=== PATIENT | female | born 1960 | race Caucasian/White ===

== ENCOUNTER → 2016-04-05 | Outpatient (CLI) | payer OTHER ==
--- NOTE | 2016-04-05 14:18 | MM ---
Reason for exam: screening (asymptomatic). Last mammogram was performed 1 year ago. History: Patient is postmenopausal and has history of other cancer at age 45. Physical Findings: A clinical breast exam by your physician is recommended on an annual basis and results should be correlated with mammographic findings. MG Screening Mammo w CAD Bilateral CC and MLO view(s) were taken. Prior study comparison: April 04, 2015, bilateral MG screening mammo w CAD. March 16, 2014, bilateral MG screening mammo w CAD. The breast tissue is heterogeneously dense. This may lower the sensitivity of mammography. Finding: There are typically benign round, grouped/clustered calcifications in the left breast. Asymmetric breast tissue in the left breast, stable. There is no discrete abnormality. ASSESSMENT: Benign, BI-RAD 2 RECOMMENDATION: Routine screening mammogram of both breasts in 1 year.
== END | disposition home or self-care (01) ==
LOC: RADMAMWWP 10:08
PROVIDERS: ATTEND Family Medicine
DX: Z12.31 Encounter for screening mammogram for malignant neoplasm of breast (principal)

== ENCOUNTER → 2016-05-15 | Outpatient (CLI) | payer OTHER ==
[~2016-05-15] MED LIST: HYDROCORTISONE SUCCINATE 100 MG/2 ML VIAL IV ONE; IMMUNE GLOBULIN (HUMAN-IGG) 10 GM in EMPTY BAG 1 BAG IV ONE; MEPERIDINE 50 MG/ML SYRINGE IVP PRN; diphenhydrAMINE 25 MG CAP PO ONE
[2016-05-15] MEDS: SODIUM CHLORIDE 0.9% 500 ML in EMPTY BAG 1 BAG IV PRN (08:20)
[2016-05-15] MEDS: diphenhydrAMINE 50 MG/ML 1 ML VIAL IVP NR (08:23)
[2016-05-15] MEDS: IMMUNE GLOBULIN (HUMAN-IGG) 20 GM in EMPTY BAG 1 BAG IV ONE (08:23)
[2016-05-15] MEDS: ACETAMINOPHEN TAB 325 MG TAB PO ONE (08:23)
[2016-05-15 08:29] VITALS: RESP 16; TEMP 98.5
[2016-05-15 10:12] VITALS: BP 108/67; PULSE 84
== END | disposition home or self-care (01) ==
LOC: PROCWHC3 07:59
PROVIDERS: ATTEND Internal Medicine
DX: Z94.84 Stem cells transplant status (principal)
CPT/HCPCS: 96365; 96366; 96375; J1200; J1569

== ENCOUNTER → 2016-08-06 | Outpatient (CLI) | payer OTHER ==
--- NOTE | 2016-08-06 08:49 | CT ---
EXAMINATION TYPE: CT sinus wo con DATE OF EXAM: 08/06/2016 COMPARISON: NONE HISTORY: Recurrent maxillary sinusitis CT DLP: 532.50 mGycm Automated exposure control for dose reduction was used. FINDINGS: Visualized intracranial structures appear normal. The orbits appear normal. There is been a previous Coldwell Fidencio procedure on the left. There is minimal mucoperiosteal thickeni ng involving the left maxillary sinus. The remainder the paranasal sinuses are clear. The right infun dibulum is patent. IMPRESSION: 1. POSTSURGICAL CHANGE. 2. MINIMAL, CHRONIC MUCOPERIOSTEAL THICKENING, LEFT MAXILLARY SINUS.
== END | disposition home or self-care (01) ==
LOC: RADCTMAIN 07:18
PROVIDERS: ATTEND Family Medicine
DX: J34.89 Other specified disorders of nose and nasal sinuses (principal)
CPT/HCPCS: 70486

== ENCOUNTER → 2016-10-10 | Outpatient (CLI) | payer OTHER ==
--- NOTE | 2016-10-10 10:08 | CT ---
EXAMINATION TYPE: CT chest wo con DATE OF EXAM: 10/10/2016 COMPARISON: CT chest June 20, 2015 HISTORY: Cough, history of leukemia CT DLP: 108.4 mGycm. Automated Exposure Control for Dose Reduction was Utilized. TECHNIQUE: CT scan of the thorax is performed without IV contrast. FINDINGS: LUNGS: There is mild to borderline moderate emphysematous change in both lungs with and minimal apica l scarring bilaterally identified. There is interval improvement in left basilar consolidation with s ome residual scarring or atelectatic change present. There is minimal linear scarring or atelectasis in the right lung base just above diaphragm. No new consolidation or groundglass opacity is seen. No pleural effusion or pneumothorax is present. There remains mild central peribronchial wall thickening bilaterally felt stable. MEDIASTINUM: Lack of IV contrast is noted to limit evaluation for mediastinal and especially hilar ad enopathy. There are no definitive greater than 1 cm hilar or mediastinal lymph nodes. No cardiomega ly or pericardial effusion is seen. Prominent right-sided pericardial fat pad is noted. Ascending aor ta measures 3.6 cm in diameter on axial image 26. Coronary artery calcification is seen which is note d marker for coronary artery disease. OTHER: Exaggerated thoracic kyphosis is present. There is persistent moderate to severe compression a t T9 level. There is new since prior study but suspected chronic mild compression at T8 level. There are additional mild compression type fracture deformities at T12-L2 levels along superior endplates, L2 level is new from prior. No acute fracture is evident. IMPRESSION: 1. Mild to borderline moderate emphysematous change with stable mild central parabronchial wall thick ening bilaterally. Interval resolution of left lower lobe consolidation. Left greater than right biba silar scarring linear scarring and/or atelectasis remains present. No new focal infiltrate is seen. 2. Demineralization with several chronic compression type fractures in the thoracolumbar spine identi fied, some are new from prior study but still suspected chronic in age.
== END | disposition home or self-care (01) ==
LOC: RADCTMAIN 09:16
PROVIDERS: ATTEND Internal Medicine
DX: J43.9 Emphysema, unspecified (principal); J98.09 Other diseases of bronchus, not elsewhere classified; S22.080A Wedge compression fracture of T11-T12 vertebra, initial encounter for closed fracture; T86.5 Complications of stem cell transplant; S32.010D Wedge compression fracture of first lumbar vertebra, subsequent encounter for fracture with routine healing
CPT/HCPCS: 71250

== ENCOUNTER → 2016-11-14 | Outpatient (CLI) | payer OTHER ==
[~2016-11-14] MED LIST changes: +ACETAMINOPHEN TAB 325 MG TAB PO ONE; -HYDROCORTISONE SUCCINATE 100 MG/2 ML VIAL IV ONE; -IMMUNE GLOBULIN (HUMAN-IGG) 10 GM in EMPTY BAG 1 BAG IV ONE; +IMMUNE GLOBULIN (HUMAN-IGG) 20 GM in EMPTY BAG 1 BAG IV ONE; -MEPERIDINE 50 MG/ML SYRINGE IVP PRN; +SODIUM CHLORIDE 0.9% 500 ML in EMPTY BAG 1 BAG IV PRN; -diphenhydrAMINE 25 MG CAP PO ONE; +diphenhydrAMINE 50 MG/ML 1 ML VIAL IVP ONE
[2016-11-14 09:32] VITALS: TEMP 98.5
[2016-11-14 10:03] VITALS: RESP 16
[2016-11-14 10:38] VITALS: BP 129/77; PULSE 71
== END | disposition home or self-care (01) ==
LOC: PROCWHC3 09:14
PROVIDERS: ATTEND Internal Medicine Hematology & Oncology
DX: D80.1 Nonfamilial hypogammaglobulinemia (principal); Z94.84 Stem cells transplant status
CPT/HCPCS: 82784; 96365; 96366; 96375; 36415; J1200; J1569

== ENCOUNTER → 2016-11-21 | Outpatient (CLI) | payer OTHER ==
--- NOTE | 2016-11-21 10:50 | CT ---
EXAMINATION TYPE: CT abdomen pelvis wo/w con DATE OF EXAM: 11/21/2016 COMPARISON: 01/06/2014 HISTORY: 56-year-old female abdominal tenderness TECHNIQUE: Contiguous axial scanning of the abdomen and pelvis following administration of 100 ml Omn ipaque 300 IV contrast. Delayed images through the kidneys and coronal/sagittal reconstructions perf ormed. CT DLP: 573.10 mGycm Automated exposure control for dose reduction was used. FINDINGS: The heart is normal size without pericardial effusion. Strandy atelectasis or scarring at the posteri or left base. Tiny hiatal hernia. No focal liver lesion or biliary ductal dilatation. Portal venous system is patent. Gallbladder, adrenal glands, kidneys, and pancreas appear within normal limits. The spleen is small. No dilated small bowel, free fluid, or free air. Small fatty umbilical hernia. No mesenteric or retroperitoneal lymphadenopathy. Mild apical scarring calcifications within the infrarenal abdominal aorta and iliac arteries. Oral contrast has progressed to the distal sigmoid. There is mild stool burden. Bladder is urine distended. Pelvic phleboliths. Uterus is tilted to the right but has a bulky appearance with possible large central fibroid possibly measuring at least 3 cm which appears to have been present on 01/06/2014 but may be slightly larger n ow. This can be assessed with pelvic ultrasound. Both ovaries are visualized. No abnormal fluid colle ction in the pelvis or pelvic lymphadenopathy. Bones: Degenerative changes lumbar spine with a mild superior endplate compression deformities of and T11, T12, and L1 stable from 06/20/2015. Mild retropulsion into the spinal canal appears similar. IMPRESSION: 1. SMALL FATTY UMBILICAL HERNIA. TINY HIATAL HERNIA. 2. BULKY UTERUS. A LARGE SUBMUCOSAL FIBROID MAY BE PRESENT AND COULD BE FURTHER EVALUATED WITH PELVIC ULTRASOUND. 3. CHRONIC MILD SUPERIOR ENDPLATE COMPRESSION DEFORMITIES OF T11, T12, AND L1.
== END | disposition home or self-care (01) ==
LOC: RADCTMAIN 08:13
PROVIDERS: ATTEND Family Medicine
DX: K42.9 Umbilical hernia without obstruction or gangrene (principal); K44.9 Diaphragmatic hernia without obstruction or gangrene; N85.2 Hypertrophy of uterus
CPT/HCPCS: 74178; Q9967

== ENCOUNTER → 2016-12-13 | Outpatient (CLI) | payer OTHER ==
--- NOTE | 2016-12-14 22:30 | US ---
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 History of uterine fibroids , leukemia, menopause age 45; pelvic pain; TECHNIQUE: Transvaginal (TV) and Transabdominal (TA) . Color Doppler and spectral waveform analysis of the ovarian arteries and veins. Date of LMP: age 45 FINDINGS: Uterus: Anteverted measuring 7.7 x 5.9 x 4.7 cm with extensive heterogeneity making it difficult to delineate the junctional anatomy. Multiple calcifications are present with multiple fibroids, largest measuring 4.4 cm as indicated by the refrigeration supervisor. It is difficult to clearly determine where exactly this fibroid is located. It appears to fill the central uterus on image 38. [employer] notes: Endometrial Stripe: not defined with large uterine fibroid. [employer] also indicates a scar which is not clearly identified on the provided images. Right Ovary: 2.3 x 2.0 x 1.2 cm Left Ovary: 1.7 x 1.2 x 1.3 cm There is satisfactory arterial and venous flow in both ovaries. No evident adnexal abnormality or cul-de-sac free fluid. IMPRESSION: 1. Markedly heterogeneous uterus with multiple fibroids. Largest measures 4.4 cm and appears to fill the central uterus, obscuring the endometrium. If fibroid mapping is desired, female pelvic MRI can b e performed. 2. No sonographic evidence for ovarian torsion.
== END ==
LOC: RADUSWWP 15:26
PROVIDERS: ATTEND Family Medicine
DX: D25.1 Intramural leiomyoma of uterus (principal)
CPT/HCPCS: 76830; 76856

== ENCOUNTER → 2017-03-20 | Outpatient (CLI) | payer OTHER ==
[2017-03-20 09:02] VITALS: RESP 16; TEMP 98.2
[2017-03-20 10:12] VITALS: BP 116/72; PULSE 82
== END | disposition home or self-care (01) ==
LOC: PROCWHC3 08:45
PROVIDERS: ATTEND Internal Medicine Hematology & Oncology
DX: Z94.84 Stem cells transplant status (principal)
CPT/HCPCS: 96365; 96366; 96375; J1200; J1569

== ENCOUNTER → 2017-06-02 | Outpatient (CLI) | payer OTHER ==
--- NOTE | 2017-06-03 09:46 | MM ---
Reason for exam: screening (asymptomatic). Last mammogram was performed 1 year and 2 months ago. History: Patient is postmenopausal and has history of other cancer at age 45. Physical Findings: A clinical breast exam by your physician is recommended on an annual basis and results should be correlated with mammographic findings. MG Screening Mammo w CAD Bilateral CC and MLO view(s) were taken. Prior study comparison: April 05, 2016, bilateral MG screening mammo w CAD. April 04, 2015, bilateral MG screening mammo w CAD. The breast tissue is heterogeneously dense. This may lower the sensitivity of mammography. Finding: There are typically benign calcifications in both breasts. No suspicious abnormality. No significant changes in finding since April 05, 2016 and April 04, 2015. ASSESSMENT: Benign, BI-RAD 2 RECOMMENDATION: Routine screening mammogram of both breasts in 1 year.
== END | disposition home or self-care (01) ==
LOC: RADMAMWWP 09:59
PROVIDERS: ATTEND Family Medicine
DX: Z12.31 Encounter for screening mammogram for malignant neoplasm of breast (principal)
CPT/HCPCS: 77067

== ENCOUNTER → 2017-06-26 | Outpatient (CLI) | payer OTHER ==
[~2017-06-26] MED LIST changes: +ACETAMINOPHEN TAB 325 MG TAB PO NR; -ACETAMINOPHEN TAB 325 MG TAB PO ONE; +IMMUNE GLOBULIN (HUMAN-IGG) 20 GM in EMPTY BAG 1 BAG IV NR; -IMMUNE GLOBULIN (HUMAN-IGG) 20 GM in EMPTY BAG 1 BAG IV ONE; +diphenhydrAMINE 25 MG CAP PO NR; +diphenhydrAMINE 50 MG/ML 1 ML VIAL IVP NR; -diphenhydrAMINE 50 MG/ML 1 ML VIAL IVP ONE
[2017-06-26 09:11] VITALS: TEMP 98.5
[2017-06-26 09:57] VITALS: PULSE 80; RESP 16
[2017-06-26 10:29] VITALS: BP 128/82
== END | disposition home or self-care (01) ==
LOC: PROCWHC3 08:49
PROVIDERS: ATTEND Internal Medicine
DX: Z94.84 Stem cells transplant status (principal)
CPT/HCPCS: 96365; 96366; 96375; J1200; J1569

== ENCOUNTER → 2017-08-28 | Outpatient (CLI) | payer OTHER ==
[~2017-08-28] MED LIST changes: -ACETAMINOPHEN TAB 325 MG TAB PO NR; +ACETAMINOPHEN TAB 325 MG TAB PO ONE; +IMMUNE GLOBULIN (HUMAN-IGG) 10 GM in EMPTY BAG 1 BAG IV ONE; -IMMUNE GLOBULIN (HUMAN-IGG) 20 GM in EMPTY BAG 1 BAG IV NR; +IMMUNE GLOBULIN (HUMAN-IGG) 5 GM in EMPTY BAG 1 BAG IV ONE; -diphenhydrAMINE 25 MG CAP PO NR; +diphenhydrAMINE 25 MG CAP PO ONE; -diphenhydrAMINE 50 MG/ML 1 ML VIAL IVP NR; +diphenhydrAMINE 50 MG/ML 1 ML VIAL IVP ONE
[2017-08-28 08:49] VITALS: RESP 16; TEMP 98.6
[2017-08-28 10:10] VITALS: BP 122/71; PULSE 77
== END ==
LOC: PROCWHC3 08:29
PROVIDERS: ATTEND Internal Medicine
DX: Z09 Encounter for follow-up examination after completed treatment for conditions other than malignant neoplasm (principal); Z94.84 Stem cells transplant status
CPT/HCPCS: 96365; 96366; J1200; J1569 ×2

== ENCOUNTER → 2017-09-23 | Outpatient (CLI) | payer OTHER ==
--- NOTE | 2017-09-23 14:52 | BD ---
EXAMINATION TYPE: Axial Bone Density DATE OF EXAM: 09/23/2017 COMPARISON: 07/25/2015 CLINICAL HISTORY: Postmenopausal female. Osteoporosis screening. Height: 61 IN Weight: 110 LBS FRAX RISK QUESTIONS: Family History (Parent hip fracture): YES FATHER RISK FACTORS HISTORY OF: Family History of Osteoporosis: YES MOTHER Active: YES Postmenopausal woman: AGE 45 Lost more than 2 inches in height since high school: YES 3 " MEDICATIONS: Osteoporosis Medications: YES Which medication: FOSAMAX CALCITONIN How Lon YEARS Additional Medications: CALCIUM, VIT D, FOSAMAX, CALCITONIN,SYMBICORT, FOLIC ACID, FISH OIL, PRAVACHO L, COZAAR, MAGNESIUM, Additional History: PT HAD LEUKEMIA WITH CHEMO EXAM MEASUREMENTS: Bone mineral densitometry was performed using the [employer] System. Bone mineral density as measured about the Lumbar spine is: ----- L1-L4(G/cm2): 0.910 T Score Values are as follows: ----- L2: -2.3 ----- L3: -2.5 ----- L4: -2.6 ----- L1-L4: -2.2 Bone mineral density has: Increased 6.2% since study of: 07/25/2015 Bone mineral density about the R hip (g/cm2): 0.746 Bone mineral density about the L hip (g/cm2): 0.720 T Score values are as follows: -----R Neck: -2.1 -----L Neck: -2.3 -----R Total: -2.7 -----L Total: -2.6 Bone mineral density has: Increased 1.5% since study of: 07.25.2015 IMPRESSION: Osteoporosis (T Score less than -2.5). There is increased fracture risk and therapy is usually indicated based on age. Re-Screen 1-2 years. NOTE: T-SCORE=SD OF THE YOUNG ADULT MEAN.
== END | disposition home or self-care (01) ==
LOC: RADBDWWP 09:36
PROVIDERS: ATTEND Obstetrics & Gynecology
DX: M81.0 Age-related osteoporosis without current pathological fracture (principal); Z78.0 Asymptomatic menopausal state
CPT/HCPCS: 77080

== ENCOUNTER 2017-10-06 07:22 | Emergency (ER) | payer OTHER ==
[2017-10-06 07:36] VITALS: BP 130/70; PULSE 86; RESP 20; TEMP 98.5
--- NOTE | 2017-10-06 07:54 | ED ---
General Adult HPI - General Chief complaint: Skin/Abscess/Foreign Body Stated complaint: Bug bite rt hand Time Seen by Provider: 10/06/17 07:41 Source: patient, RN notes reviewed, old records reviewed Mode of arrival: ambulatory Limitations: no limitations - History of Present Illness Initial comments: 57-year-old female presenting with bug bite to the right hand. This occurred approximately 2 days ago. She has had erythema and severe itching in the location of the bite as well as the surrounding tissue. Patient denies fever or chills. She states that she did take one Benadryl with minimal relief. She has been putting topical cream on this with no change. 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 She is currently not on any immunosuppression, no daily steroids. Denies any other symptoms. No complaints of dyspnea. No chest pain, no abdominal pain, no nausea vomiting. - Related Data Home Medications Medication Instructions Recorded Confirmed Albuterol Sulfate [Ventolin HFA] 2 puff INHALATION DIRECTED PRN 07/12/13 Budesonide/Formoterol Fumarate 2 puff INHALATION BID 07/12/13 08/28/17 [Symbicort 160-4.5 Mcg Inhaler] Calcium Carbonate/Vitamin D3 1 each PO BID 07/12/13 08/28/17 [Caltrate 600 + D Tablet] Fish Oil/Dha/Epa [Fish Oil 1,200 600 cap PO TID 07/12/13 08/28/17 mg Fish Oil] Glycerin/Propylene Glycol 1 applicate BOTH EYES DIRECTED 07/12/13 08/28/17 [Artificial Tears Drops] PRN Ibuprofen [Motrin] 800 mg PO Q8HR PRN 07/12/13 08/28/17 Multivitamins, Thera [Multivitamin] 1 each PO DAILY 07/12/13 08/28/17 Pantoprazole Sodium [Protonix] 40 mg PO DIRECTED 07/12/13 08/28/17 Pravastatin Sodium [Pravachol] 20 mg PO HS 07/12/13 08/28/17 Zafirlukast [Accolate] 20 mg PO BID 07/12/13 08/28/17 Zolpidem [Ambien] 2.5 mg PO HS PRN 07/12/13 08/28/17 Cholecalciferol [Vitamin D3] 400 unit PO BID 09/13/13 08/28/17 Losartan [Cozaar] 12.5 mg PO 1400 05/12/14 08/28/17 Folic Acid 1 tab PO DAILY 07/03/15 08/28/17 Previous Rx's Medication Instructions Recorded Cephalexin [Keflex] 500 mg PO Q8HR #21 cap 10/06/17 Sulfamethox-Tmp 800-160Mg [Bactrim 1 tab PO Q12HR #14 tab 10/06/17 DS 800-160 mg] diphenhydrAMINE [Benadryl] 25 mg PO TID PRN #21 capsule 10/06/17 Allergies Allergy/AdvReac Type Severity Reaction Status Date / Time erythromycin base AdvReac Nausea & Verified 10/06/17 07:36 [Erythromycin Base] Vomiting Review of Systems ROS Statement: Those systems with pertinent positive or pertinent negative responses have been documented in the HPI. ROS Other: All systems not noted in ROS Statement are negative. 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 Past Anesthesia/Blood Transfusion Reactions: Family History of Problems w/ Anesthesia, Postoperative Nausea & Vomiting (PONV) Past Psychological History: No Psychological Hx Reported Smoking Status: Former smoker Past Alcohol Use History: None Reported Past Drug Use History: None Reported General Exam Limitations: no limitations General appearance: alert, in no apparent distress Head exam: Present: atraumatic, normocephalic Eye exam: Present: normal appearance, PERRL ENT exam: Present: normal exam Neck exam: Present: normal inspection. Absent: tenderness, meningismus Respiratory exam: Present: normal lung sounds bilaterally. Absent: respiratory distress Cardiovascular Exam: Present: regular rate, normal rhythm GI/Abdominal exam: Present: soft. Absent: distended, tenderness, guarding Extremities exam: Present: other (Right hand: Patient has erythema to the dorsal surface of the hand and distal forearm. There is no induration, no fluctuance. There is some mild diffuse swelling. Patient has good range of motion with all 5 digits. No pain on range of motion.) Course Vital Signs 10/06/17 07:34 Temperature 98.5 F Pulse Rate 86 Respiratory 20 Rate Blood Pressure 130/70 O2 Sat by Pulse 98 Oximetry Medical Decision Making - Medical Decision Making 57-year-old female with dog bite and local ALLERGIC reaction to the area. Patient does have history of multiple myeloma, but is currently not on any immunosuppression. She takes of Bactrim daily since single strength prophylactic Bactrim. She will be prescribed Bactrim as well as Keflex at the chance this is infectious although most likely this is reactive to bug bite and ALLERGIC in nature. She'll also take Benadryl 3 times daily. She will follow- up with her primary care physician for reevaluation and return with worsening or changing symptoms. Patient also ice and elevate her right hand. Disposition Clinical Impression: Insect bites, Cellulitis Disposition: HOME SELF-CARE Condition: Good Instructions: Cellulitis (ED), Insect Bite or Sting (ED) Prescriptions: Cephalexin [Keflex] 500 mg PO Q8HR #21 cap diphenhydrAMINE [Benadryl] 25 mg PO TID PRN #21 capsule PRN Reason: Allergic Reaction Sulfamethox-Tmp 800-160Mg [Bactrim DS 800-160 mg] 1 tab PO Q12HR #14 tab Is patient prescribed a controlled substance at d/c from ED?: No Referrals: Reji Berumen DO [Primary Care Provider] - 1-2 days Time of Disposition: 07:53
== END 2017-10-06 08:05 | disposition home or self-care (01) ==
LOC: EC 07:22
DX: S60.561A Insect bite (nonvenomous) of right hand, initial encounter (principal); L03.113 Cellulitis of right upper limb; J44.9 Chronic obstructive pulmonary disease, unspecified; K21.9 Gastro-esophageal reflux disease without esophagitis; E78.5 Hyperlipidemia, unspecified; M81.0 Age-related osteoporosis without current pathological fracture; I10 Essential (primary) hypertension; Z87.891 Personal history of nicotine dependence; Z98.51 Tubal ligation status; Z85.6 Personal history of leukemia; Z94.81 Bone marrow transplant status; Z79.51 Long term (current) use of inhaled steroids; Z79.899 Other long term (current) drug therapy; Z88.1 Allergy status to other antibiotic agents; W57.XXXA Bitten or stung by nonvenomous insect and other nonvenomous arthropods, initial encounter
CPT/HCPCS: 99283

== ENCOUNTER → 2017-11-20 | Outpatient (CLI) | payer OTHER ==
[~2017-11-20] MED LIST changes: +ACETAMINOPHEN TAB 325 MG TAB PO NR; -ACETAMINOPHEN TAB 325 MG TAB PO ONE; -IMMUNE GLOBULIN (HUMAN-IGG) 10 GM in EMPTY BAG 1 BAG IV ONE; +IMMUNE GLOBULIN (HUMAN-IGG) 20 GM in EMPTY BAG 1 BAG IV SCH; -IMMUNE GLOBULIN (HUMAN-IGG) 5 GM in EMPTY BAG 1 BAG IV ONE; +diphenhydrAMINE 25 MG CAP PO NR; -diphenhydrAMINE 25 MG CAP PO ONE; -diphenhydrAMINE 50 MG/ML 1 ML VIAL IVP ONE
[2017-11-20 08:51] VITALS: RESP 16; TEMP 97.9
[2017-11-20 10:03] VITALS: BP 118/76; PULSE 76
== END | disposition home or self-care (01) ==
LOC: PROCWHC3 08:14
DX: Z94.84 Stem cells transplant status (principal)
CPT/HCPCS: 96365; 96366; J1569

== ENCOUNTER → 2018-01-27 | Outpatient (CLI) | payer OTHER ==
[~2018-01-27] MED LIST changes: -ACETAMINOPHEN TAB 325 MG TAB PO NR; +ACETAMINOPHEN TAB 325 MG TAB PO STA; +IMMUNE GLOBULIN (GAMMAGARD) 20 GM in EMPTY BAG 1 BAG IV NR; -IMMUNE GLOBULIN (HUMAN-IGG) 20 GM in EMPTY BAG 1 BAG IV SCH; +SODIUM CHLORIDE 0.9% 500 ML 500 ML in EMPTY BAG 1 BAG IV PRN; -SODIUM CHLORIDE 0.9% 500 ML in EMPTY BAG 1 BAG IV PRN; -diphenhydrAMINE 25 MG CAP PO NR; +diphenhydrAMINE 25 MG CAP PO ONE
[2018-01-27 10:15] VITALS: RESP 16; TEMP 98.3
[2018-01-27 11:32] VITALS: BP 121/79; PULSE 106
== END | disposition home or self-care (01) ==
LOC: PROCWHC3 10:03
DX: Z94.84 Stem cells transplant status (principal)
CPT/HCPCS: 96365; 96366; J1569

== ENCOUNTER → 2018-03-16 | Outpatient (CLI) | payer OTHER ==
[~2018-03-16] MED LIST changes: +ACETAMINOPHEN TAB 325 MG TAB PO NR; -ACETAMINOPHEN TAB 325 MG TAB PO STA; +diphenhydrAMINE 25 MG CAP PO NR; -diphenhydrAMINE 25 MG CAP PO ONE
[2018-03-16 09:31] VITALS: TEMP 98.1
[2018-03-16 10:31] VITALS: BP 110/78; PULSE 74; RESP 18
== END | disposition home or self-care (01) ==
LOC: PROCWHC3 03-09 09:28
DX: Z48.290 Encounter for aftercare following bone marrow transplant (principal); Z94.84 Stem cells transplant status
CPT/HCPCS: 96365; 96366; J1569

== ENCOUNTER → 2018-08-12 | Outpatient (CLI) | payer OTHER ==
--- NOTE | 2018-08-12 16:46 | CT ---
EXAMINATION TYPE: CT abdomen pelvis w con DATE OF EXAM: 08/12/2018 COMPARISON: Prior CT abdomen pelvis 11/21/2016 HISTORY: Generalized Abdominal Tenderness CT DLP: 631 mGycm Automated exposure control for dose reduction was used. TECHNIQUE: Helical acquisition of images from the lung bases through the pelvis have been completed. CONTRAST: Performed with Oral Contrast and with IV Contrast, patient injected with 100ml mL of Isovue 300. FINDINGS: Small umbilical hernia contains fat. LUNG BASES: Some right middle lobe atelectatic changes present. There is a nodular density present al jes the right hemidiaphragm on axial image 11 measuring 8 mm which is stable, may represent lymph nod e, is kidney henning shaped. Some bronchial wall thickening is noted at the left lung base. Correlate fo r bronchitis. Some probable basilar atelectasis or scarring also noted. There may be a small hiatal h ernia. AORTA: No significant abnormality is appreciated. LIVER/GB: Liver shows low attenuation possibly due to hepatic steatosis. Gallbladder is normal.. PANCREAS: No significant abnormality is seen. SPLEEN: Small as on prior ADRENALS: No significant abnormality is seen. KIDNEYS: No significant abnormality is seen. REPRODUCTIVE ORGANS: Calcified fibroids cause a lobulated appearance to the uterus as on prior exam. BOWEL: Abnormal thickening of the cecum is noted. This is an interval finding. FREE AIR: No Free Air visible. ASCITES: None visible. PELVIC ADENOPATHY: None visualized. RETROPERITONEAL ADENOPATHY: No Retroperitoneal Adenopathy visible. URINARY BLADDER: No significant abnormality is seen. OSSEOUS STRUCTURES: No significant abnormality is seen. IMPRESSION: ABNORMAL MUCOSAL THICKENING OF THE CECUM, RECOMMEND SURGICAL CONSULT. THERE MAY BE SOME RIGHT MIDDLE LOBE ATELECTASIS. CORRELATE FOR BRONCHITIS.
== END | disposition home or self-care (01) ==
LOC: RADCTMAIN 12:46
PROVIDERS: ATTEND Family Medicine
DX: K63.89 Other specified diseases of intestine (principal)
CPT/HCPCS: 74177; Q9967

== ENCOUNTER 2018-08-19 10:30 | Day surgery (SDC) | payer OTHER ==
[2018-08-18 09:33] VITALS: BMI 20.5
[~2018-08-19 10:30] MED LIST changes: -ACETAMINOPHEN TAB 325 MG TAB PO NR; +ALBUTEROL NEB (CONC) 2.5 MG/0.5 ML INHALATION ONE; +ATROPINE SULFATE 0.4 MG/ML 1 ML VIAL IM ONE; -IMMUNE GLOBULIN (GAMMAGARD) 20 GM in EMPTY BAG 1 BAG IV NR; +LACTATED RINGERS 1,000 ML IV SCH; +LIDOCAINE 1% 20 ML VIAL (10MG/ML) FOR IV START INTRADERMA PRN; +LIDOCAINE 2% (PF) 20 MG/ML 5 ML VIAL INHALATION ONE; +LIDOCAINE VISCOUS 300 MG/15 ML CUP MUCOUS MEM ONE; +SODIUM CHLORIDE 0.9% 1,000 ML IV SCH; -SODIUM CHLORIDE 0.9% 500 ML 500 ML in EMPTY BAG 1 BAG IV PRN; -diphenhydrAMINE 25 MG CAP PO NR
[2018-08-19 10:51] VITALS: TEMP 98.4
[2018-08-19 11:04] LABS: Glucose,Whole Blood 78 mg/dL (75-99)
[2018-08-19] MEDS ORDERED: MIDAZOLAM 2 MG/2 ML VIAL ONE (12:04)
[2018-08-19] MEDS ORDERED: LIDOCAINE 1% INJ 10MG/ML (20 ML MDV) ONE (12:04)
[2018-08-19] MEDS ORDERED: fentaNYL (PF) 50 MCG/ML 2 ML AMP ONE (12:04)
[2018-08-19] MEDS ORDERED: PROPOFOL 10 MG/ML 20 ML VIAL IV ONE (12:04)
[2018-08-19] MEDS ORDERED: LIDOCAINE 2% INJ 20 MG/ML INTRATRACH ONE (12:17)
[2018-08-19 12:44] VITALS: BP 129/69; PULSE 128; RESP 22
[2018-08-19 17:06] LABS: Appearance,BF Blood Tinged; Color,BF Colorless; Nucleated Cells, Body Fluid 3175 /uL; RBC, Body Fluid 2980 /uL
[2018-08-19 17:07] LABS: Appearance,BF Cloudy; Color,BF Colorless; Nucleated Cells, Body Fluid 10090 /uL; RBC, Body Fluid 915 /uL
[2018-08-19 17:34] LABS: Mononuclear WBC,Body Fluid 3 %; Polynuclear WBC,Body Fluid 97 %
[2018-08-19 17:35] LABS: Mononuclear WBC,Body Fluid 6 %; Polynuclear WBC,Body Fluid 94 %
--- NOTE | 2018-08-19 20:13 | PCN ---
PROCEDURE NOTE PROCEDURE PERFORMED: Bronchoscopy airway examination, therapeutic lavage, BAL right middle lobe and BAL left lower lobe. PREOP DIAGNOSIS: Status post allogeneic bone marrow transplant, [id number] disease. POSTOP DIAGNOSIS: Status post allogeneic bone marrow transplant, graft versus host disease. ANESTHESIA: Provided unconscious sedation and general anesthesia. There was informed consent and universal timeout. DESCRIPTION OF PROCEDURE: Procedure took place in room #2. After the patient was adequately sedated and being fully monitored, the bronchoscope was inserted through the right nostril. It passed through the right nasopharynx into the oropharynx. The hypopharynx was identified and topicalized. Anterior commissure, true cords, false cords, arytenoids, piriform sinuses, right and left and vallecula all appeared normal. After topicalization, the bronchoscope was pushed through the glottic opening into the trachea. The trachea appeared relatively normal. There was a mild degree of tracheitis and there was some secretions that were purulent looking distally. The tracheal leida itself was sharp. The right and left mainstem were topicalized. The right upper lobe and its 3 segments, right middle lobe and its 2 segments right lower lobe and its 5 segments, the left upper lobe proper and its 2 segments, the lingula and its 2 segments and the left lower lobe with 4 segments all had similar findings of diffuse airway erythema and hyperemia. There was mucosal friability. The patient bled easily. There were thick secretions noted throughout, particularly in the right middle lobe, right lower lobe area, as well as in the left lower lobe. They were very purulent and thick. There was no dominant mass or tumor. Next, after the secretions were suctioned, the bronchoscope was wedged into the right middle lobe. BAL took place. Likewise, we did a BAL in the left lower lobe. The patient tolerated the procedure well. Additional secretions were suctioned and the bronchoscope was withdrawn. The patient will be recovered. I will pass on the information to my partner and also I will make sure that I talk to the patient's in the waiting area. The patient tolerated the procedure well without complication. MMODL / IJN: [id number] /
== END 2018-08-19 13:06 | disposition home or self-care (01) ==
LOC: ORWHC2ENDO 10:30
PROVIDERS: ATTEND Internal Medicine Critical Care Medicine
DX: J44.1 Chronic obstructive pulmonary disease with (acute) exacerbation (principal); J04.10 Acute tracheitis without obstruction; T86.09 Other complications of bone marrow transplant; D89.811 Chronic graft-versus-host disease; C95.10 Chronic leukemia of unspecified cell type not having achieved remission; S22.009A Unspecified fracture of unspecified thoracic vertebra, initial encounter for closed fracture; D80.1 Nonfamilial hypogammaglobulinemia; Z87.01 Personal history of pneumonia (recurrent); Z80.6 Family history of leukemia; Z82.49 Family history of ischemic heart disease and other diseases of the circulatory system; Z87.891 Personal history of nicotine dependence; I10 Essential (primary) hypertension; E78.5 Hyperlipidemia, unspecified; M81.0 Age-related osteoporosis without current pathological fracture; K21.9 Gastro-esophageal reflux disease without esophagitis; Z88.1 Allergy status to other antibiotic agents; Z79.51 Long term (current) use of inhaled steroids; Z79.899 Other long term (current) drug therapy
CPT/HCPCS: 94640; 88108; 88305; 89050; 87252; 87070; 87205; 87116; 87102; 87206; 31624; J2001 ×3; J2250; J0461; J3010; J2704; 87496; 87498; 87502; 87529; 87634; 87798

== ENCOUNTER → 2018-09-28 | Outpatient (CLI) | payer OTHER ==
[~2018-09-28] MED LIST changes: +ACETAMINOPHEN TAB 325 MG TAB PO NR; -ALBUTEROL NEB (CONC) 2.5 MG/0.5 ML INHALATION ONE; -ATROPINE SULFATE 0.4 MG/ML 1 ML VIAL IM ONE; +IMMUNE GLOBULIN (GAMMAGARD) 20 GM in EMPTY BAG 1 BAG IV NR; -LACTATED RINGERS 1,000 ML IV SCH; -LIDOCAINE 1% 20 ML VIAL (10MG/ML) FOR IV START INTRADERMA PRN; -LIDOCAINE 2% (PF) 20 MG/ML 5 ML VIAL INHALATION ONE; -LIDOCAINE VISCOUS 300 MG/15 ML CUP MUCOUS MEM ONE; -SODIUM CHLORIDE 0.9% 1,000 ML IV SCH; +SODIUM CHLORIDE 0.9% 500 ML 500 ML in EMPTY BAG 1 BAG IV PRN; +diphenhydrAMINE 25 MG CAP PO NR
[2018-09-28 08:29] VITALS: RESP 16; TEMP 98
[2018-09-28 09:44] VITALS: BP 123/71; PULSE 77
== END | disposition home or self-care (01) ==
LOC: PROCWHC3 07:57
PROVIDERS: ATTEND Nurse Practitioner
DX: Z51.11 Encounter for antineoplastic chemotherapy (principal); D80.1 Nonfamilial hypogammaglobulinemia
CPT/HCPCS: 96365; 96366; J1569

== ENCOUNTER → 2018-11-19 | Outpatient (CLI) | payer OTHER ==
[2018-11-19 08:55] VITALS: TEMP 98.3
[2018-11-19 09:17] VITALS: BP 120/71; PULSE 69; RESP 16
== END | disposition home or self-care (01) ==
LOC: PROCWHC3 08:44
PROVIDERS: ATTEND Nurse Practitioner
DX: D80.1 Nonfamilial hypogammaglobulinemia (principal)
CPT/HCPCS: 96365; 96366; J1569

== ENCOUNTER → 2019-02-03 | Outpatient (CLI) | payer OTHER ==
[~2019-02-03] MED LIST changes: -IMMUNE GLOBULIN (GAMMAGARD) 20 GM in EMPTY BAG 1 BAG IV NR; +IMMUNE GLOBULIN (GAMMAGARD) 20 GM in EMPTY BAG 1 BAG IV ONE
[2019-02-03 08:56] VITALS: RESP 16; TEMP 98.7
[2019-02-03 09:38] VITALS: BP 120/78; PULSE 86
== END ==
LOC: PROCWHC3 08:34
PROVIDERS: ATTEND Internal Medicine
DX: D89.811 Chronic graft-versus-host disease (principal); H04.123 Dry eye syndrome of bilateral lacrimal glands; B46.5 Mucormycosis, unspecified; J84.116 Cryptogenic organizing pneumonia; D80.1 Nonfamilial hypogammaglobulinemia; K11.7 Disturbances of salivary secretion
CPT/HCPCS: 96365; 96366; J1569

== ENCOUNTER → 2019-05-04 | Outpatient (CLI) | payer OTHER ==
[~2019-05-04] MED LIST changes: -ACETAMINOPHEN TAB 325 MG TAB PO NR; +ACETAMINOPHEN TAB 325 MG TAB PO ONE; -diphenhydrAMINE 25 MG CAP PO NR; +diphenhydrAMINE 25 MG CAP PO ONE
[2019-05-04 09:30] VITALS: RESP 16; TEMP 98.4
[2019-05-04 10:44] VITALS: BP 132/70; PULSE 76
== END | disposition home or self-care (01) ==
LOC: PROCWHC3 09:22
PROVIDERS: ATTEND Internal Medicine
DX: D80.1 Nonfamilial hypogammaglobulinemia (principal); D89.811 Chronic graft-versus-host disease; E50.7 Other ocular manifestations of vitamin A deficiency; K11.7 Disturbances of salivary secretion; B46.5 Mucormycosis, unspecified; J84.116 Cryptogenic organizing pneumonia
CPT/HCPCS: 96365; 96366; J1569

== ENCOUNTER 2019-06-30 13:31 | Emergency (ER) | payer OTHER ==
[2019-06-30] MEDS ORDERED: SODIUM CHLORIDE 0.9% 500 ML 500 ML IV STA (13:55)
[2019-06-30] MEDS ORDERED: HYDROmorphone 0.5 MG/0.5 ML SYRINGE IVP STA (13:55)
[2019-06-30 14:20] LABS: ALT 168 U/L (4-34); AST 119 U/L (14-36); African American GFR (CKD) >90 (>60 ml/min/1.73 sqM); Albumin 4.2 g/dL (3.5-5.0); Alkaline Phosphatase 115 U/L (38-126); Amylase 80 U/L (30-110); Anion Gap 7 mmol/L; Blood Urea Nitrogen 19 mg/dL (7-17); Calcium 9.6 mg/dL (8.4-10.2); Carbon Dioxide 27 mmol/L (22-30); Chloride 104 mmol/L (98-107); Glucose 90 mg/dL (74-99); Non-African American GFR(CKD) >90 (>60 ml/min/1.73 sqM); Potassium 3.5 mmol/L (3.5-5.1); Sodium 138 mmol/L (137-145); Total Bilirubin 0.8 mg/dL (0.2-1.3); Total Protein 6.7 g/dL (6.3-8.2)
[2019-06-30 14:21] LABS: Appearance,Urine Clear (Clear); Bilirubin,Urine Negative (Negative); Blood,Urine Negative (Negative); Color,Urine Light Yellow; Glucose,Urine (UA) Negative (Negative); Ketones,Urine Negative (Negative); Leukocyte Esterase,Urine Negative (Negative); Nitrite,Urine Negative (Negative); PH, Urine 6.5 (5.0-8.0); Protein,Urine Negative (Negative); Specific Gravity,Urine 1.005 (1.001-1.035); Urobilinogen,Urine <2.0 mg/dL (<2.0)
[2019-06-30 14:28] LABS: Anisocytosis Slight; Basophils # (A) 0.1 k/uL (0-0.2); Basophils % (A) 1 %; Eosinophils # (A) 0.2 k/uL (0-0.7); Eosinophils % (A) 3 %; HCT 44.3 % (34.0-46.0); HGB 14.5 gm/dL (11.4-16.0); Lymphocytes # (A) 2.2 k/uL (1.0-4.8); Lymphocytes % (A) 24 %; MCH 35.1 pg (25.0-35.0); MCHC 32.9 g/dL (31.0-37.0); MCV 106.8 fL (80.0-100.0); Macrocytosis Marked; Mean Platelet Volume 8.8; Monocytes # (A) 1.4 k/uL (0-1.0); Monocytes % (A) 15 %; Neutrophils # (A) 4.8 k/uL (1.3-7.7); Neutrophils % (A) 53 %; Platelet Count 211 k/uL (150-450); RBC 4.14 m/uL (3.80-5.40); RDW 16.1 % (11.5-15.5)
--- NOTE | 2019-06-30 14:54 | US ---
EXAMINATION TYPE: US abdomen limited DATE OF EXAM: 06/30/2019 COMPARISON: CT 08/12/2018 CLINICAL HISTORY: 59-year-old female RUQ pain. TECHNIQUE: Multiple sonographic images of the right upper quadrant are obtained. FINDINGS: EXAM MEASUREMENTS: Liver Length: 14.3 cm Gallbladder Wall: 0.2 cm CBD: 0.3 cm Right Kidney: 9.7 x 5.1 x 4.6 cm Pancreas: Only portions of the pancreatic neck and body are visualized. The head and tail are subopt imally visualized due to shadowing from bowel gas. Liver: Homogeneous appearance without focal lesion. Gallbladder: wnl Evidence for sonographic Gustafson's sign: No CBD: wnl Right Kidney: No hydronephrosis. Punctate 2 mm echogenic focus cortex of the mid to lower pole, poss ible prominent vascular reflector. IMPRESSION: Suboptimal visualization of portions of the pancreas. Otherwise, unremarkable sonographic examination of the right upper quadrant.
--- NOTE | 2019-06-30 15:20 | ED ---
Abdominal Pain HPI - General Chief Complaint: Abdominal Pain Stated Complaint: abdominal pain Time Seen by Provider: 06/30/19 13:40 Source: patient Limitations: no limitations - History of Present Illness Initial Comments: 59-year-old female with history of CLL currently known to be in remission patient has chronic dfbfl-chlwwo-blro disease with chronic lung disease presents emergency department today for chief complaint of right upper quadrant abdominal pain patient states she has had right upper quadrant abdominal pain since she ate dinner last night began shortly after eating. Patient denies any vomiting but states she was nauseous and has lack of appetite. Patient denies any fever. She states she is not short of breath but her abdomen hurts sometimes when she takes a very deep breath. Denies this pain being in chest/lung nicole. Patient denies bloody or loose stools. Patient denies leg swelling, recent surgeries/travel. Patient states she has had this abdominal pain in the past. Patient states it is a crampy pain. Denies radiation. On ROS patient states she has back pain but not related to new complaints--she states it has been there and is chronic back pain due to her "bone density" after chemo treatments causing compression fracture, no loss of bowel bladder control or urinary retention, leg weakness or sensation deficits. - Related Data Home Medications Medication Instructions Recorded Confirmed Albuterol Sulfate [Ventolin HFA] 2 puff INHALATION RT-QID PRN 07/12/13 05/04/19 Budesonide/Formoterol Fumarate 2 puff INHALATION RT-BID 07/12/13 05/04/19 [Symbicort 160-4.5 Mcg Inhaler] Fish Oil/Dha/Epa [Fish Oil 1,200 1 cap PO TID 07/12/13 05/04/19 mg Fish Oil] Glycerin/Propylene Glycol 1 drop BOTH EYES Q4H PRN 07/12/13 05/04/19 [Artificial Tears Drops] Multivitamins, Thera [Multivitamin] 1 tab PO DAILY 07/12/13 05/04/19 Zolpidem [Ambien] 2.5 - 5 mg PO HS PRN 07/12/13 05/04/19 Calcitonin Nasal [Fortical 1 spray NASAL DAILY 10/06/17 05/04/19 (Miacalcin)] Calcium Carbonate [Calcium] 600 mg PO BID 10/06/17 05/04/19 Cholecalciferol (Vitamin D3) 2,000 unit PO DAILY 10/06/17 05/04/19 [Vitamin D3] Cyanocobalamin/Folic AC/Vit B6 1 tab PO DAILY@0800 10/06/17 05/04/19 [Folbee Tablet] Magnesium 400 mg PO DAILY 10/06/17 05/04/19 Pravastatin Sodium [Pravachol] 20 mg PO HS 10/06/17 05/04/19 Azithromycin 250 mg PO DIRECTED 02/03/19 05/04/19 Previous Rx's Medication Instructions Recorded diphenhydrAMINE [Benadryl] 25 mg PO TID PRN #21 capsule 10/06/17 Ondansetron Odt [Zofran Odt] 4 mg PO Q8HR PRN 7 Days #21 tab 06/30/19 Allergies Allergy/AdvReac Type Severity Reaction Status Date / Time erythromycin base Allergy Unknown Nausea & Verified 06/30/19 13:37 [Erythromycin Base] Vomiting Review of Systems ROS Statement: Those systems with pertinent positive or pertinent negative responses have been documented in the HPI. ROS Other: All systems not noted in ROS Statement are negative. 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 Sinus surgery x 2. Past Anesthesia/Blood Transfusion Reactions: Family History of Problems w/ Anesthesia, Postoperative Nausea & Vomiting (PONV) Past Psychological History: No Psychological Hx Reported Smoking Status: Former smoker Past Alcohol Use History: None Reported Past Drug Use History: None Reported - Past Family History Mother Additional Family Medical History / Comment(s): AML General Exam - General Exam Comments Initial Comments: General: The patient is awake and alert, in no distress, and does not appear acutely ill. Eye: +3 mm pupils are equal, round and reactive to light, extra-ocular movements are intact. No nystagmus. There is normal conjunctiva bilaterally. No signs of icterus. Ears, nose, mouth and throat: There are moist mucous membranes and no oral lesions. Neck: The neck is supple, there is no tenderness or JVD. Cardiovascular: There is a regular rate and rhythm. No murmur, rub or gallop is appreciated. Respiratory: Lungs are clear to auscultation, respirations are non-labored, breath sounds are equal. No wheezes, stridor, rales, or rhonchi. Gastrointestinal: Soft, non-distended, tender to palpation of the RUQ of the abdomen, the remaining abdomen is nontender and is without masses or organomegaly noted. There is no rebound or guarding present. No CVA tenderness. Musculoskeletal: Normal ROM, no tenderness. Strength 5/5. Sensation intact. Pulses equal bilaterally 2+. Neurological: A&O x 3. CN II-XII intact grossly, There are no obvious motor or sensory deficits. Coordination appears grossly intact. Speech is normal. Skin: Skin is warm and dry and no rashes or lesions are noted. Psychiatric: Cooperative, appropriate mood & affect, normal judgment. Limitations: no limitations Course Vital Signs 06/30/19 06/30/19 06/30/19 13:35 15:00 16:00 Temperature 98.3 F Pulse Rate 94 70 77 Respiratory 18 18 16 Rate Blood Pressure 156/87 147/82 152/65 O2 Sat by Pulse 92 L 97 98 Oximetry 06/30/19 06/30/19 16:56 17:45 Temperature 97.3 F L Pulse Rate 88 78 Respiratory 20 18 Rate Blood Pressure 135/68 115/101 O2 Sat by Pulse 99 98 Oximetry Medical Decision Making - Medical Decision Making 59-year-old female presented for upper quadrant abdominal pain reproducible on exam began after eating yesterday. Patient had nausea. Patient has no significant findings on her CT aside from enteritis, she is having bowel movement. Patient vomited after dialudid. Patient pain controlled. She appears well, US WNL. Slight increase in AST/ALT. No leukocytosis. Patient will be discharged with instruction for pcp f/u and symptomatic treatment, return parameters were discussed and i recommended strict return parameters. Patient states she would like to go home and was discharged appearing well after I discussed case with Dr. Snowden. - Lab Data Result diagrams: 06/30/19 13:56 06/30/19 13:56 Lab Results 06/30/19 06/30/19 06/30/19 Range/Units 13:56 13:56 13:56 WBC 9.0 (3.8-10.6) k/uL RBC 4.14 (3.80-5.40) m/uL Hgb 14.5 (11.4-16.0) gm/dL Hct 44.3 (34.0-46.0) % MCV 106.8 H (80.0-100.0) fL MCH 35.1 H (25.0-35.0) pg MCHC 32.9 (31.0-37.0) g/dL RDW 16.1 H (11.5-15.5) % Plt Count 211 (150-450) k/uL Neutrophils % 53 % Lymphocytes % 24 % Monocytes % 15 % Eosinophils % 3 % Basophils % 1 % Neutrophils # 4.8 (1.3-7.7) k/uL Lymphocytes # 2.2 (1.0-4.8) k/uL Monocytes # 1.4 H (0-1.0) k/uL Eosinophils # 0.2 (0-0.7) k/uL Basophils # 0.1 (0-0.2) k/uL Manual Slide Review Performed Anisocytosis Slight Macrocytosis Marked A Sodium 138 (137-145) mmol/L Potassium 3.5 (3.5-5.1) mmol/L Chloride 104 (98-107) mmol/L Carbon Dioxide 27 (22-30) mmol/L Anion Gap 7 mmol/L BUN 19 H (7-17) mg/dL Creatinine 0.61 (0.52-1.04) mg/dL Est GFR (CKD-EPI)AfAm >90 (>60 ml/min/1.73 sqM) Est GFR (CKD-EPI)NonAf >90 (>60 ml/min/1.73 sqM) Glucose 90 (74-99) mg/dL Plasma Lactic Acid Inderjit 1.0 (0.7-2.0) mmol/L Calcium 9.6 (8.4-10.2) mg/dL Total Bilirubin 0.8 (0.2-1.3) mg/dL AST 119 H (14-36) U/L ALT 168 H (4-34) U/L Alkaline Phosphatase 115 (38-126) U/L Troponin I (0.000-0.034) ng/mL Total Protein 6.7 (6.3-8.2) g/dL Albumin 4.2 (3.5-5.0) g/dL Amylase 80 (30-110) U/L Lipase 123 (23-300) U/L Urine Color Urine Appearance (Clear) Urine pH (5.0-8.0) Ur Specific [place] (1.001-1.035) Urine Protein (Negative) Urine Glucose (UA) (Negative) Urine Ketones (Negative) Urine Blood (Negative) Urine Nitrite (Negative) Urine Bilirubin (Negative) Urine Urobilinogen (<2.0) mg/dL Ur Leukocyte Esterase (Negative) 06/30/19 06/30/19 Range/Units 13:56 14:05 WBC (3.8-10.6) k/uL RBC (3.80-5.40) m/uL Hgb (11.4-16.0) gm/dL Hct (34.0-46.0) % MCV (80.0-100.0) fL MCH (25.0-35.0) pg MCHC (31.0-37.0) g/dL RDW (11.5-15.5) % Plt Count (150-450) k/uL Neutrophils % % Lymphocytes % % Monocytes % % Eosinophils % % Basophils % % Neutrophils # (1.3-7.7) k/uL Lymphocytes # (1.0-4.8) k/uL Monocytes # (0-1.0) k/uL Eosinophils # (0-0.7) k/uL Basophils # (0-0.2) k/uL Manual Slide Review Anisocytosis Macrocytosis Sodium (137-145) mmol/L Potassium (3.5-5.1) mmol/L Chloride (98-107) mmol/L Carbon Dioxide (22-30) mmol/L Anion Gap mmol/L BUN (7-17) mg/dL Creatinine (0.52-1.04) mg/dL Est GFR (CKD-EPI)AfAm (>60 ml/min/1.73 sqM) Est GFR (CKD-EPI)NonAf (>60 ml/min/1.73 sqM) Glucose (74-99) mg/dL Plasma Lactic Acid Inderjit (0.7-2.0) mmol/L Calcium (8.4-10.2) mg/dL Total Bilirubin (0.2-1.3) mg/dL AST (14-36) U/L ALT (4-34) U/L Alkaline Phosphatase (38-126) U/L Troponin I <0.012 (0.000-0.034) ng/mL Total Protein (6.3-8.2) g/dL Albumin (3.5-5.0) g/dL Amylase (30-110) U/L Lipase (23-300) U/L Urine Color Light Yellow Urine Appearance Clear (Clear) Urine pH 6.5 (5.0-8.0) Ur Specific [place] 1.005 (1.001-1.035) Urine Protein Negative (Negative) Urine Glucose (UA) Negative (Negative) Urine Ketones Negative (Negative) Urine Blood Negative (Negative) Urine Nitrite Negative (Negative) Urine Bilirubin Negative (Negative) Urine Urobilinogen <2.0 (<2.0) mg/dL Ur Leukocyte Esterase Negative (Negative) Disposition Clinical Impression: Enteritis, RUQ abdominal pain, Nausea, Vomiting Disposition: HOME SELF-CARE Condition: Good Instructions (If sedation given, give patient instructions): Abdominal Pain (ED) Additional Instructions: Please use medication as discussed. Please follow-up with family doctor in the next 2 days. Please return to emergency room if the symptoms increase or worsen or for any other concerns. Prescriptions: Ondansetron Odt [Zofran Odt] 4 mg PO Q8HR PRN 7 Days #21 tab PRN Reason: Nausea Is patient prescribed a controlled substance at d/c from ED?: No Referrals: Reij Berumen DO [Primary Care Provider] - 1-2 days Time of Disposition: 16:49
--- NOTE | 2019-06-30 15:37 | CT ---
EXAMINATION TYPE: CT abdomen pelvis w con DATE OF EXAM: 06/30/2019 COMPARISON: 08/12/2018 HISTORY: 59-year-old female right sided abdominal pain, hx of leukemia TECHNIQUE: Contiguous axial scanning of the abdomen and pelvis following administration of 100 ml Iso rain 300 IV contrast. Delayed images through the kidneys and coronal/sagittal reconstructions perform ed. CT DLP: 502.5 mGycm Automated exposure control for dose reduction was used. FINDINGS: Stable focal right middle lobe opacity, probably atelectasis. Stable medial left basilar opacity, lik kelvin volume loss and atelectasis as well. No pleural effusion. Heart normal size without pericardial effusion. No focal liver lesion or biliary ductal dilatation. Portal venous system is patent. Gallbladder, adrenal glands, kidneys, small spleen, and pancreas show no gross abnormal body. No dilated small bowel, free fluid, or free air. No mesenteric or retroperitoneal lymphadenopathy. Moderate atherosclerotic calcifications infrarenal abdominal aorta. Prominent fluid filled small bowel loops lower abdomen and pelvis. Previously seen cecal wall thickening is no longer apparent. Moderate stool burden. No pericolonic in flammatory change. Mild circumferential bladder wall thickening. Anteverted, bulky fibroid uterus with associated calcifications. Largest underlying fibroid likely me asures up to 4.3 cm. Multiple pelvic phleboliths. Ovaries are visualized. No abnormal fluid collectio n in the pelvis or pelvic lymphadenopathy. Bones: Facet arthropathy lower lumbar spine. Stable superior endplate deformities of T11-L1 levels wi th mild retropulsion into the ventral spinal canal. IMPRESSION: 1. PROMINENT FLUID-FILLED SMALL BOWEL LOOPS IN THE LOWER ABDOMEN AND PELVIS. CORRELATE FOR ENTERITIS. THE PREVIOUS ABNORMAL CECAL WALL THICKENING HAS RESOLVED IN THE INTERVAL. 2. MILD CIRCUMFERENTIAL BLADDER WALL THICKENING MAY REPRESENT CYSTITIS. 3. MODERATE STOOL BURDEN AND FIBROID UTERUS. 4. STABLE OPACITIES MEDIAL LEFT BASE AND MEDIAL RIGHT MIDDLE LOBE, LIKELY AREAS OF CHRONIC VOLUME LOS S AND ATELECTASIS.
[2019-06-30] MEDS ORDERED: ONDANSETRON 4 MG/2 ML VIAL IVP STA (16:46)
[2019-06-30 17:46] VITALS: BP 115/101; PULSE 78; RESP 18; TEMP 97.3
== END 2019-06-30 17:46 | disposition home or self-care (01) ==
LOC: EC 13:31
DX: K52.9 Noninfective gastroenteritis and colitis, unspecified (principal); J44.9 Chronic obstructive pulmonary disease, unspecified; E78.5 Hyperlipidemia, unspecified; I10 Essential (primary) hypertension; M81.0 Age-related osteoporosis without current pathological fracture; D89.811 Chronic graft-versus-host disease; Z79.51 Long term (current) use of inhaled steroids; Z79.899 Other long term (current) drug therapy; Z87.891 Personal history of nicotine dependence; Z88.1 Allergy status to other antibiotic agents; Z85.6 Personal history of leukemia; Z98.51 Tubal ligation status
CPT/HCPCS: 36415; 74177; 76705; 80053; 81003; 82150; 83605; 83690; 84484; 85025; 93005; 96361; 96374; 96375; 99284

== ENCOUNTER → 2019-07-06 | Outpatient (CLI) | payer OTHER ==
--- NOTE | 2019-07-06 12:29 | NM ---
EXAMINATION TYPE: NM hepatobiliary w EF DATE OF EXAM: 07/06/2019 COMPARISON: NONE HISTORY: Pain TECHNIQUE: After the intravenous administration of 3.6 mCi Tc 99m Mebrofenin hepatobiliary scintigrap hy is performed. Immediate images post injection. FINDINGS: There is satisfactory initial accumulation of tracer by the liver. The gallbladder is visualized wit hin 11 minutes. The small bowel activity is noted within 22 minutes. At one hour 8 ounces of oral e nsure plus is given to mimic CCK and gallbladder ejection fraction is calculated at 64 %, in the norm al range. Therefore there is no scintigraphic evidence of cystic or common bile duct obstruction to suggest acute cholecystitis or gallbladder dyskinesia. IMPRESSION: Exam is within normal limits.
== END | disposition home or self-care (01) ==
LOC: RADNMMAIN 10:05
PROVIDERS: ATTEND Family Medicine
DX: R10.11 Right upper quadrant pain (principal)
CPT/HCPCS: 78226

== ENCOUNTER → 2019-07-12 | Outpatient (CLI) | payer OTHER ==
[~2019-07-12] MED LIST changes: +IMMUNE GLOBULIN (GAMMAGARD) 20 GM in EMPTY BAG 1 BAG IV NR; -IMMUNE GLOBULIN (GAMMAGARD) 20 GM in EMPTY BAG 1 BAG IV ONE
[2019-07-12 10:32] VITALS: RESP 18; TEMP 98.9
[2019-07-12 11:30] VITALS: BP 116/73; PULSE 84
== END | disposition home or self-care (01) ==
LOC: PROCWHC3 09:59
PROVIDERS: ATTEND Internal Medicine
DX: D89.811 Chronic graft-versus-host disease (principal); D80.1 Nonfamilial hypogammaglobulinemia; J84.89 Other specified interstitial pulmonary diseases; K11.7 Disturbances of salivary secretion; H04.123 Dry eye syndrome of bilateral lacrimal glands; B46.5 Mucormycosis, unspecified
CPT/HCPCS: 96365; 96366; J1569

== ENCOUNTER → 2019-09-09 | Outpatient (CLI) | payer OTHER ==
--- NOTE | 2019-09-09 15:56 | XR ---
Right toes HISTORY: Trauma and pain 2 views of the right digit are submitted. There is a cortical irregularity at the dorsal aspect of the distal phalanx of the first digit seen o n the lateral view. No definite fracture line present however. No dislocation. There is soft tissue s welling. IMPRESSION: Findings may represent normal variant rather than acute fracture. Follow-up as indicated to assess for fracture healing.
== END | disposition home or self-care (01) ==
LOC: RADXRYALE 14:43
PROVIDERS: ATTEND Physician Assistant Medical
DX: M79.674 Pain in right toe(s) (principal); S90.931A Unspecified superficial injury of right great toe, initial encounter

== ENCOUNTER → 2019-11-29 | Outpatient (CLI) | payer OTHER ==
--- NOTE | 2019-11-30 13:57 | MM ---
Reason for exam: screening (asymptomatic). Last mammogram was performed 2 years and 6 months ago. History: Patient is postmenopausal and has history of other cancer at age 45. Physical Findings: A clinical breast exam by your physician is recommended on an annual basis and results should be correlated with mammographic findings. MG Screening Mammo w CAD Bilateral CC and MLO view(s) were taken. Prior study comparison: June 02, 2017, bilateral MG screening mammo w CAD. April 05, 2016, bilateral MG screening mammo w CAD. No significant changes when compared with prior studies. ASSESSMENT: Benign, BI-RAD 2 RECOMMENDATION: Routine screening mammogram of both breasts in 1 year.
--- NOTE | 2019-12-01 07:43 | BD ---
EXAMINATION TYPE: Axial Bone Density DATE OF EXAM: 11/29/2019 COMPARISON: 09/23/2017 CLINICAL HISTORY: Height: 60.5 IN Weight: 103 LBS FRAX RISK QUESTIONS: Family History (Parent hip fracture): YES FATHER RISK FACTORS HISTORY OF: Family History of Osteoporosis: YES MOM AND DAD Active: YES Postmenopausal woman: AGE 46 Lost more than 2 inches in height since high school: 3" MEDICATIONS: Osteoporosis Medications: YES Which medication: FOSAMAX 3+ YEARS How Long: CALCITONIN 3 + YEARS Additional Medications: CALCIUM, VIT D, SYMBICORT, AZITHROMYCIN, FOLIC ACID, THERA TEARS, PRAVASTATIN , FOSAMAX, CALCITONIN, FISH OIL, CLARITIN Additional History: CHRONIC LYMPHOCYTIC LEUKEMIA WITH CHEMO EXAM MEASUREMENTS: Bone mineral densitometry was performed using the [employer] System. Bone mineral density as measured about the Lumbar spine is: ----- L1-L4(G/cm2): 0.944 T Score Values are as follows: ----- L2: -2.1 ----- L3: -2.0 ----- L4: -2.3 ----- L1-L4: -2.0 Bone mineral density has: Increased 4.4% since study of: 09/23/2017 Bone mineral density about the R hip (g/cm2): 0.767 Bone mineral density about the L hip (g/cm2): 0.724 T Score values are as follows: -----R Neck: -2.0 -----L Neck: -2.3 -----R Total: -2.2 -----L Total: -2.3 Bone mineral density has: Increased 7.1% since study of 09/23/2017 IMPRESSION: Osteopenia (T Score between -2.5 and -1) remains present. There remains slightly increased risk of fracture and the patient may be considered for treatment. Re-Screen 2-5 years. NOTE: T-SCORE=SD OF THE YOUNG ADULT MEAN.
== END | disposition home or self-care (01) ==
LOC: RADMAMWWP 15:55
PROVIDERS: ATTEND Obstetrics & Gynecology
DX: Z12.31 Encounter for screening mammogram for malignant neoplasm of breast (principal); M85.80 Other specified disorders of bone density and structure, unspecified site; M81.0 Age-related osteoporosis without current pathological fracture
CPT/HCPCS: 77067; 77080

== ENCOUNTER → 2020-04-11 | Outpatient (CLI) | payer OTHER ==
[~2020-04-11] MED LIST changes: -IMMUNE GLOBULIN (GAMMAGARD) 20 GM in EMPTY BAG 1 BAG IV NR; +IMMUNE GLOBULIN (GAMMAGARD) 20 GM in EMPTY BAG 1 BAG IV ONE
[2020-04-11 10:23] VITALS: RESP 16; TEMP 99.8
[2020-04-11 10:46] VITALS: PULSE 87
[2020-04-11 11:08] VITALS: BP 130/87
== END | disposition home or self-care (01) ==
LOC: PROCWHC3 09:38
PROVIDERS: ATTEND Internal Medicine
DX: D80.1 Nonfamilial hypogammaglobulinemia (principal); D89.811 Chronic graft-versus-host disease; H04.123 Dry eye syndrome of bilateral lacrimal glands; B46.5 Mucormycosis, unspecified; J84.116 Cryptogenic organizing pneumonia; K11.7 Disturbances of salivary secretion
CPT/HCPCS: 96365; 96366; J1569

== ENCOUNTER → 2020-08-29 | Outpatient (CLI) | payer OTHER ==
--- NOTE | 2020-08-29 09:50 | XR ---
EXAMINATION TYPE: XR abdomen 2V DATE OF EXAM: 08/29/2020 COMPARISON: 06/30/2019 HISTORY: Pain TECHNIQUE: One view abdominal series FINDINGS: The osseous structures are intact. The bowel gas pattern is nonspecific. Diffuse osteopenia. Arthrop athy of the hips. Consolidative calcifications in pelvis likely related to uterine fibroid. Additiona l uptake calcifications likely related to vascular phleboliths. Degenerative change of the spine. Vis ualized lung bases clear. IMPRESSION: 1. Nonspecific abdomen. 2. Correlate for calcified uterine fibroid.
== END | disposition home or self-care (01) ==
LOC: RADXRYALE 09:13
PROVIDERS: ATTEND Physician Assistant Medical
DX: R10.9 Unspecified abdominal pain (principal)
CPT/HCPCS: 74019

== ENCOUNTER → 2021-01-31 | Outpatient (CLI) | payer OTHER, MEDICARE ==
--- NOTE | 2021-02-02 11:26 | MM ---
Reason for exam: screening (asymptomatic). Last mammogram was performed 1 year and 2 months ago. History: Patient is postmenopausal and has history of other cancer at age 45. Physical Findings: A clinical breast exam by your physician is recommended on an annual basis and results should be correlated with mammographic findings. MG Screening Mammo w CAD Bilateral CC and MLO view(s) were taken. Prior study comparison: November 29, 2019, bilateral MG screening mammo w CAD. June 02, 2017, bilateral MG screening mammo w CAD. There are scattered fibroglandular densities. There are benign appearing round calcifications bilaterally. There is no discrete abnormality. ASSESSMENT: Benign, BI-RAD 2 RECOMMENDATION: Routine screening mammogram of both breasts in 1 year.
== END | disposition home or self-care (01) ==
LOC: RADMAMWWP 09:56
PROVIDERS: ATTEND Obstetrics & Gynecology
DX: Z12.31 Encounter for screening mammogram for malignant neoplasm of breast (principal); Z78.0 Asymptomatic menopausal state
CPT/HCPCS: 77067

== ENCOUNTER → 2021-07-13 | Outpatient (CLI) | payer OTHER, MEDICARE ==
[~2021-07-13] MED LIST changes: -ACETAMINOPHEN TAB 325 MG TAB PO ONE; +ACETAMINOPHEN TAB 500 MG TAB PO NR; +IMMUNE GLOBULIN (GAMMAGARD) 20 GM in EMPTY BAG 1 BAG IV NR; -IMMUNE GLOBULIN (GAMMAGARD) 20 GM in EMPTY BAG 1 BAG IV ONE; -diphenhydrAMINE 25 MG CAP PO ONE; +methylPREDNISolone SOD SUCCI 125 MG/2 ML VIAL IV NR
[2021-07-13 09:30] VITALS: TEMP 97.4
[2021-07-13 09:58] VITALS: BP 125/51; PULSE 88; RESP 16
== END ==
LOC: PROCWHC3 08:34
PROVIDERS: ATTEND Internal Medicine Hematology & Oncology
DX: C91.10 Chronic lymphocytic leukemia of B-cell type not having achieved remission (principal); Z88.1 Allergy status to other antibiotic agents; Z87.891 Personal history of nicotine dependence
CPT/HCPCS: 96365; 96366; 96375; J2930; J1569

== ENCOUNTER → 2021-07-16 | Outpatient (CLI) | payer OTHER, MEDICARE ==
[~2021-07-16] MED LIST changes: -ACETAMINOPHEN TAB 500 MG TAB PO NR; -IMMUNE GLOBULIN (GAMMAGARD) 20 GM in EMPTY BAG 1 BAG IV NR; -SODIUM CHLORIDE 0.9% 500 ML 500 ML in EMPTY BAG 1 BAG IV PRN; +TIXAGEVIMAB/CILGAVIMAB (EUA) 300 MG/3 ML COMBO.PKG IM ONE; -methylPREDNISolone SOD SUCCI 125 MG/2 ML VIAL IV NR
[2021-07-16 10:28] VITALS: BP 151/88; PULSE 90; RESP 16; TEMP 98.6
== END ==
LOC: PROCWHC3 09:45
PROVIDERS: ATTEND Internal Medicine Hematology & Oncology
DX: C91.10 Chronic lymphocytic leukemia of B-cell type not having achieved remission (principal); Z92.22 Personal history of monoclonal drug therapy; Z88.1 Allergy status to other antibiotic agents; Z87.891 Personal history of nicotine dependence

== ENCOUNTER → 2021-10-15 | Outpatient (CLI) | payer MEDICARE, OTHER ==
[~2021-10-15] MED LIST changes: +ACETAMINOPHEN TAB 500 MG TAB PO NR; +IMMUNE GLOBULIN (GAMMAGARD) 20 GM in EMPTY BAG 1 BAG IV NR; +SODIUM CHLORIDE 0.9% 500 ML 500 ML in EMPTY BAG 1 BAG IV PRN; -TIXAGEVIMAB/CILGAVIMAB (EUA) 300 MG/3 ML COMBO.PKG IM ONE; +methylPREDNISolone SOD SUCCI 125 MG/2 ML VIAL IV NR
[2021-10-15 09:38] VITALS: TEMP 98.2
[2021-10-15 10:07] VITALS: RESP 16
[2021-10-15 10:23] VITALS: BP 127/58; PULSE 84
== END ==
LOC: PROCWHC3 09:29
PROVIDERS: ATTEND Internal Medicine Hematology & Oncology
DX: C91.10 Chronic lymphocytic leukemia of B-cell type not having achieved remission (principal); D80.1 Nonfamilial hypogammaglobulinemia; Z88.1 Allergy status to other antibiotic agents; Z87.891 Personal history of nicotine dependence
CPT/HCPCS: 96365; 96366; J2930; J1569

== ENCOUNTER → 2022-01-14 | Outpatient (CLI) | payer MEDICARE ==
[2022-01-14 09:27] VITALS: RESP 16; TEMP 98.2
[2022-01-14 10:23] VITALS: BP 128/62; PULSE 78
== END | disposition home or self-care (01) ==
LOC: PROCWHC3 09:17
PROVIDERS: ATTEND Family Medicine
DX: C91.10 Chronic lymphocytic leukemia of B-cell type not having achieved remission (principal)
CPT/HCPCS: 96365; 96366; 96375; J2930; J1569

== ENCOUNTER 2022-06-06 15:37 | Inpatient (IN) | payer MEDICARE ==
--- NOTE | 2022-06-06 16:18 | ED ---
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 The patient states that over the past week she has been feeling congestion and shortness of breath as well as having cough. She had cared for a grandchild who had croup. The patient's also had upper respiratory symptoms during the past week. It got to the point where she saw the clinic physician on Friday. She had a shot of antibiotic, shot of steroid, and was given prescription for prednisone and amoxicillin. MD Complaint: shortness of breath, cough -: week(s) Severity scale (1-10): 0 Consistency: constant Improves With: nothing Known History Of: other (GvH disease) Associated Symptoms: cough Treatments Prior to Arrival: bronchodilator - Related Data Home Oxygen Therapy: No Home Medications Medication Instructions Recorded Confirmed Albuterol Sulfate [Ventolin HFA] 2 puff INHALATION RT-QID PRN 07/12/13 06/06/22 Budesonide/Formoterol Fumarate 2 puff INHALATION RT-BID 07/12/13 06/06/22 [Symbicort 160-4.5 Mcg Inhaler] Fish Oil/Dha/Epa [Fish Oil 1,200 1 cap PO DAILY 07/12/13 06/06/22 mg Fish Oil] Multivitamins, Thera [Multivitamin 1 tab PO DAILY 07/12/13 06/06/22 (formulary)] Zolpidem [Ambien] 2.5 - 5 mg PO HS PRN 07/12/13 06/06/22 Calcitonin Nasal [Fortical 1 spray NASAL DAILY 10/06/17 06/06/22 (Miacalcin)] Calcium Carbonate [Calcium] 600 mg PO DAILY 10/06/17 06/06/22 Acyclovir 400 mg PO BID 04/11/20 06/06/22 Sulfamethox-Tmp 400-80Mg [Bactrim 1 tab PO DAILY 07/13/21 06/06/22 SS 400-80 mg] Albuterol Nebulized [Ventolin 2.5 mg INHALATION RT-Q6H PRN 06/06/22 06/06/22 Nebulized] Alendronate Sodium 70 mg PO FR 06/06/22 06/06/22 Cetirizine HCl [Zyrtec] 10 mg PO DAILY 06/06/22 06/06/22 Cholecalciferol [Vitamin D3 (25 50 mcg PO DAILY 06/06/22 06/06/22 Mcg = 1000 Iu)] Esomeprazole Magnesium [NexIUM 20 mg PO DAILY 06/06/22 06/06/22 24Hr] Folic Acid 0.4 mg PO DAILY 06/06/22 06/06/22 Ibuprofen [Motrin] 800 mg PO Q8H PRN 06/06/22 06/06/22 Magnesium 250 mg PO DAILY 06/06/22 06/06/22 Rosuvastatin Calcium [Crestor] 40 mg PO HS 06/06/22 06/06/22 Vitamin E (Dl,Tocopheryl Acet) 400 unit PO BID 06/06/22 06/06/22 [Vitamin E (400 Iu = 180 mg)] cycloSPORINE 0.05% OPHTH SOLN 1 applicator BOTH EYES Q12H 06/06/22 06/06/22 [Restasis] Previous Rx's Medication Instructions Recorded Doxycycline [Vibramycin] 100 mg PO BID #7 cap 06/11/22 predniSONE [Deltasone] 0 mg PO DIRECTED #18 tab 06/11/22 Allergies Allergy/AdvReac Type Severity Reaction Status Date / Time erythromycin base Allergy Unknown Nausea & Verified 06/06/22 19:15 [Erythromycin Base] Vomiting Review of Systems ROS Statement: Those systems with pertinent positive or pertinent negative responses have been documented in the HPI. ROS Other: All systems not noted in ROS Statement are negative. 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 SHINGLES - 2020 History of Any Multi-Drug Resistant Organisms: None Reported Past Surgical History: Section, Tubal Ligation Additional Past Surgical History / Comment(s): BIOPSY OF NECK X2, port/later removed, bone marrow transplant,stem cell transplant, lymph node biopsy. Sinus surgery x 2. Past Anesthesia/Blood Transfusion Reactions: Family History of Problems w/ Anesthesia, Postoperative Nausea & Vomiting (PONV) Past Psychological History: No Psychological Hx Reported Smoking Status: Former smoker Past Alcohol Use History: None Reported Past Drug Use History: Marijuana - Past Family History Mother Additional Family Medical History / Comment(s): AML General Exam Limitations: no limitations General appearance: alert, in no apparent distress Head exam: Present: atraumatic, normocephalic Eye exam: Present: normal appearance. Absent: scleral icterus, conjunctival injection Neck exam: Present: normal inspection Respiratory exam: Present: wheezes. Absent: respiratory distress, rales, rhonchi, stridor, accessory muscle use, decreased breath sounds Cardiovascular Exam: Present: regular rate, normal rhythm, normal heart sounds. Absent: systolic murmur, diastolic murmur, rubs, gallop GI/Abdominal exam: Present: soft. Absent: distended, tenderness, guarding, rebound, rigid, mass Extremities exam: Present: normal inspection, normal capillary refill. Absent: pedal edema, calf tenderness Back exam: Present: normal inspection. Absent: CVA tenderness (R), CVA tenderness (L) Neurological exam: Present: alert Skin exam: Present: warm, dry, intact, normal color. Absent: rash Course Vital Signs 06/06/22 06/06/22 15:53 18:57 Temperature 98.8 F Pulse Rate 93 80 Respiratory 18 18 Rate Blood Pressure 154/82 160/90 O2 Sat by Pulse 86 L 95 Oximetry Medical Decision Making - Medical Decision Making This patient is 62-year-old woman presenting with persistent symptoms of respiratory infection. She appears to be failing outpatient treatment with steroid and antibiotic. Workup here includes chest x-ray which I interpreted as showing right middle lobe density, possible infection versus mass. As interpreted by myself. The patient will be admitted case is discussed with admitting physician and consult for patient's community health advocate is ordered. Was pt. sent in by a medical professional or institution (, PA, PRODUCT DEVELOPMENT ENGINEER, urgent care, hospital, or half-way...) When possible be specific @ -[No] Did you speak to anyone other than the patient for history (EMS, parent, family, police, friend...)? What history was obtained from this source @ -[No] Did you review nursing and triage notes (agree or disagree)? Why? @ -[I reviewed and agree with nursing and triage notes] Were old charts reviewed (outside hosp., previous admission, EMS record, old EKG, old radiological studies, urgent care reports/EKG's, half-way records)? Report findings @ -[old charts were reviewed] Differential Diagnosis (chest pain, altered mental status, abdominal pain women, abdominal pain men, vaginal bleeding, weakness, fever, dyspnea, syncope, headache, dizziness, GI bleed, back pain, seizure, CVA, palpatations, mental health, musculoskeletal)? @ -[Differential Dyspnea: Coronary syndrome, arrhythmia, tamponade, asthma, COPD, pulmonary embolism, pneumonia, pneumothorax, pulmonary effusion, anaphylaxis, diabetic ketoacidosis, flailed chest, pulmonary contusion, diaphragmatic rupture, anemia, neuromuscular, this is not meant to be an all-inclusive list. EKG interpreted by me (3pts min.). @ -[As above] X-rays interpreted by me (1pt min.). @ -[As above CT interpreted by me (1pt min.). @ -[None done] U/S interpreted by me (1pt. min.). @ -[None done] What testing was considered but not performed or refused? (CT, X-rays, U/S, labs)? Why? @ -[None] What meds were considered but not given or refused? Why? @ -[None] Did you discuss the management of the patient with other professionals (professionals i.e. , PA, PRODUCT DEVELOPMENT ENGINEER, lab, RT, psych nurse, social media analyst, roving hand, teacher, small business banking officer, pillowcase cutter)? Give summary @ -Case discussed with admitting physician Was smoking cessation discussed for >3mins.? @ -[No] Was critical care preformed (if so, how long)? @ -[No] Were there social determinants of health that impacted care today? How? (Homelessness, low income, unemployed, alcoholism, drug addiction, transportation, low edu. Level, literacy, decrease access to med. care, long-term, rehab)? @ -[No] Was there de-escalation of care discussed even if they declined (Discuss DNR or withdrawal of care, Hospice)? DNR status @ -[No] What co-morbidities impacted this encounter? (DM, HTN, Smoking, COPD, CAD, Cancer, CVA, ARF, Chemo, Hep., AIDS, mental health diagnosis, sleep apnea, morbid obesity)? @ -[COPD. [id number]-rugd disease with immunosuppression Was patient admitted / discharged? Hospital course, mention meds given and route, prescriptions, significant lab abnormalities, going to OR and other pertinent info. @ -[Admitted Undiagnosed new problem with uncertain prognosis? @ -[No] Drug Therapy requiring intensive monitoring for toxicity (Heparin, Nitro, Insulin, Cardizem)? @ -[No] Were any procedures done? @ -[No] Diagnosis/symptom? @ -[Acute dyspnea COPD exacerbation Possible pneumonia Acute, or Chronic, or Acute on Chronic? @ -[Acute Uncomplicated (without systemic symptoms) or Complicated (systemic symptoms)? @ -[Unconjugated Side effects of treatment? @ -[No] Exacerbation, Progression, or Severe Exacerbation? @ -[Exacerbation of COPD Poses a threat to life or bodily function? How? (Chest pain, [place], [place], pneumonia, PE, COPD, DKA, ARF, appy, cholecystitis, CVA, Diverticulitis, Homicidal, Suicidal, threat to staff... and all critical care pts) @ -[Yes untreated dyspnea may progress to respiratory failure and - Lab Data Result diagrams: 06/11/22 05:32 06/11/22 05:32 Lab Results 06/06/22 06/06/22 06/06/22 Range/Units 17:00 17:00 17:00 WBC 7.3 (3.8-10.6) k/uL RBC 3.95 (3.80-5.40) m/uL Hgb 14.0 (11.4-16.0) gm/dL Hct 42.1 (34.0-46.0) % MCV 106.5 H (80.0-100.0) fL MCH 35.3 H (25.0-35.0) pg MCHC 33.2 (31.0-37.0) g/dL RDW 16.3 H (11.5-15.5) % Plt Count 247 (150-450) k/uL MPV 9.4 Neutrophils % (Manual) 77 % Lymphocytes % (Manual) 18 % Monocytes % (Manual) 5 % Neutrophils # (Manual) 5.62 (1.3-7.7) k/uL Lymphocytes # (Manual) 1.31 (1.0-4.8) k/uL Monocytes # (Manual) 0.37 (0-1.0) k/uL Nucleated RBCs 6 H (0-0) /100 WBC Manual Slide Review Performed Large Platelets Present Polychromasia Present Anisocytosis Slight Macrocytosis Marked A PT 9.4 (9.0-12.0) sec INR 0.9 (<1.2) APTT 20.9 L (22.0-30.0) sec Sodium 141 (137-145) mmol/L Potassium 4.0 (3.5-5.1) mmol/L Chloride 104 (98-107) mmol/L Carbon Dioxide 26 (22-30) mmol/L Anion Gap 11 mmol/L BUN 18 H (7-17) mg/dL Creatinine 0.60 (0.52-1.04) mg/dL Est GFR (CKD-EPI)AfAm >90 (>60 ml/min/1.73 sqM) Est GFR (CKD-EPI)NonAf >90 (>60 ml/min/1.73 sqM) Glucose 188 H (74-99) mg/dL Lactic Ac Sepsis Rflx Plasma Lactic Acid Inderjit (0.7-2.0) mmol/L Calcium 9.9 (8.4-10.2) mg/dL Magnesium 2.1 (1.6-2.3) mg/dL Total Bilirubin 0.5 (0.2-1.3) mg/dL AST 27 (14-36) U/L ALT 33 (4-34) U/L Alkaline Phosphatase 91 (38-126) U/L Troponin I (0.000-0.034) ng/mL NT-Pro-B Natriuret Pep pg/mL Total Protein 6.8 (6.3-8.2) g/dL Albumin 4.5 (3.5-5.0) g/dL Influenza Type A (PCR) (Not Detectd) Influenza Type B (PCR) (Not Detectd) RSV (PCR) (Not Detectd) SARS-CoV-2 (PCR) (Not Detectd) 06/06/22 06/06/22 06/06/22 Range/Units 17:00 17:00 17:00 WBC (3.8-10.6) k/uL RBC (3.80-5.40) m/uL Hgb (11.4-16.0) gm/dL Hct (34.0-46.0) % MCV (80.0-100.0) fL MCH (25.0-35.0) pg MCHC (31.0-37.0) g/dL RDW (11.5-15.5) % Plt Count (150-450) k/uL MPV Neutrophils % (Manual) % Lymphocytes % (Manual) % Monocytes % (Manual) % Neutrophils # (Manual) (1.3-7.7) k/uL Lymphocytes # (Manual) (1.0-4.8) k/uL Monocytes # (Manual) (0-1.0) k/uL Nucleated RBCs (0-0) /100 WBC Manual Slide Review Large Platelets Polychromasia Anisocytosis Macrocytosis PT (9.0-12.0) sec INR (<1.2) APTT (22.0-30.0) sec Sodium (137-145) mmol/L Potassium (3.5-5.1) mmol/L Chloride (98-107) mmol/L Carbon Dioxide (22-30) mmol/L Anion Gap mmol/L BUN (7-17) mg/dL Creatinine (0.52-1.04) mg/dL Est GFR (CKD-EPI)AfAm (>60 ml/min/1.73 sqM) Est GFR (CKD-EPI)NonAf (>60 ml/min/1.73 sqM) Glucose (74-99) mg/dL Lactic Ac Sepsis Rflx Plasma Lactic Acid Inderjit 2.2 H* (0.7-2.0) mmol/L Calcium (8.4-10.2) mg/dL Magnesium (1.6-2.3) mg/dL Total Bilirubin (0.2-1.3) mg/dL AST (14-36) U/L ALT (4-34) U/L Alkaline Phosphatase (38-126) U/L Troponin I <0.012 (0.000-0.034) ng/mL NT-Pro-B Natriuret Pep 126 pg/mL Total Protein (6.3-8.2) g/dL Albumin (3.5-5.0) g/dL Influenza Type A (PCR) (Not Detectd) Influenza Type B (PCR) (Not Detectd) RSV (PCR) (Not Detectd) SARS-CoV-2 (PCR) (Not Detectd) 06/06/22 06/06/22 Range/Units 17:15 17:58 WBC (3.8-10.6) k/uL RBC (3.80-5.40) m/uL Hgb (11.4-16.0) gm/dL Hct (34.0-46.0) % MCV (80.0-100.0) fL MCH (25.0-35.0) pg MCHC (31.0-37.0) g/dL RDW (11.5-15.5) % Plt Count (150-450) k/uL MPV Neutrophils % (Manual) % Lymphocytes % (Manual) % Monocytes % (Manual) % Neutrophils # (Manual) (1.3-7.7) k/uL Lymphocytes # (Manual) (1.0-4.8) k/uL Monocytes # (Manual) (0-1.0) k/uL Nucleated RBCs (0-0) /100 WBC Manual Slide Review Large Platelets Polychromasia Anisocytosis Macrocytosis PT (9.0-12.0) sec INR (<1.2) APTT (22.0-30.0) sec Sodium (137-145) mmol/L Potassium (3.5-5.1) mmol/L Chloride (98-107) mmol/L Carbon Dioxide (22-30) mmol/L Anion Gap mmol/L BUN (7-17) mg/dL Creatinine (0.52-1.04) mg/dL Est GFR (CKD-EPI)AfAm (>60 ml/min/1.73 sqM) Est GFR (CKD-EPI)NonAf (>60 ml/min/1.73 sqM) Glucose (74-99) mg/dL Lactic Ac Sepsis Rflx Y Plasma Lactic Acid Inderjit (0.7-2.0) mmol/L Calcium (8.4-10.2) mg/dL Magnesium (1.6-2.3) mg/dL Total Bilirubin (0.2-1.3) mg/dL AST (14-36) U/L ALT (4-34) U/L Alkaline Phosphatase (38-126) U/L Troponin I (0.000-0.034) ng/mL NT-Pro-B Natriuret Pep pg/mL Total Protein (6.3-8.2) g/dL Albumin (3.5-5.0) g/dL Influenza Type A (PCR) Not Detected (Not Detectd) Influenza Type B (PCR) Not Detected (Not Detectd) RSV (PCR) Not Detected (Not Detectd) SARS-CoV-2 (PCR) Not Detected (Not Detectd) - EKG Data -: EKG Interpreted by Me EKG shows normal: sinus rhythm (Rate 86 bpm), axis (Normal), intervals (Normal), QRS complexes (Low voltage QRS complex) Interpretation: nonspecific ST-T wave changes Disposition Clinical Impression: COPD (chronic obstructive pulmonary disease), Pneumonia Disposition: ADMITTED IP TO THIS HOSP Condition: Good Is patient prescribed a controlled substance at d/c from ED?: No
[2022-06-06 17:41] LABS: Anisocytosis Slight; HCT 42.1 % (34.0-46.0); MCH 35.3 pg (25.0-35.0); MCHC 33.2 g/dL (31.0-37.0); MCV 106.5 fL (80.0-100.0); Macrocytosis Marked; Mean Platelet Volume 9.4; Platelet Count 247 k/uL (150-450); RBC 3.95 m/uL (3.80-5.40); RDW 16.3 % (11.5-15.5)
[2022-06-06 17:46] LABS: ALT 33 U/L (4-34); AST 27 U/L (14-36); African American GFR (CKD) >90 (>60 ml/min/1.73 sqM); Albumin 4.5 g/dL (3.5-5.0); Alkaline Phosphatase 91 U/L (38-126); Anion Gap 11 mmol/L; Blood Urea Nitrogen 18 mg/dL (7-17); Calcium 9.9 mg/dL (8.4-10.2); Carbon Dioxide 26 mmol/L (22-30); Chloride 104 mmol/L (98-107); Glucose 188 mg/dL (74-99); Magnesium 2.1 mg/dL (1.6-2.3); Non-African American GFR(CKD) >90 (>60 ml/min/1.73 sqM); Sodium 141 mmol/L (137-145); Total Bilirubin 0.5 mg/dL (0.2-1.3); Total Protein 6.8 g/dL (6.3-8.2)
[2022-06-06 17:50] LABS: INR 0.9 (<1.2); Prothrombin Time 9.4 sec (9.0-12.0)
[2022-06-06 17:52] LABS: Partial Thromboplastin Time 20.9 sec (22.0-30.0)
--- NOTE | 2022-06-06 18:04 | XR ---
EXAMINATION TYPE: XR chest 2V DATE OF EXAM: 06/06/2022 COMPARISON: Chest CT October 10, 2016 HISTORY: Dyspnea. TECHNIQUE: Frontal and lateral views of the chest are obtained. FINDINGS: There is underlying emphysematous change with new right middle lobe opacity corresponding to lobar atelectasis. No pleural effusion or pneumothorax seen bilaterally. The cardiac silhouette s ize is stable and within normal limits. The osseous structures are demineralized. IMPRESSION: Chronic emphysematous change with right middle lobe opacity suspect lobar atelectasis. C onsider obstructing mucous plug. Endobronchial lesion or neoplasm needs to be considered if findings do not improve/resolve.
[2022-06-06 18:16] LABS: Lymphocytes # (M) 1.31 k/uL (1.0-4.8); Monocytes # (M) 0.37 k/uL (0-1.0); Neutrophils # (M) 5.62 k/uL (1.3-7.7); Neutrophils % (M) 77 %; Nucleated Red Blood Cells 6 /100 WBC (0-0); Total Cells Counted 200; WBC 7.3 k/uL (3.8-10.6)
[2022-06-06 18:20] LABS: Large Platelets Present; Polychromasia Present
[2022-06-06] MEDS ORDERED: NALOXONE 0.4 MG/ML 1 ML VIAL IVP PRN (18:23)
[2022-06-06] MEDS ORDERED: ACETAMINOPHEN TAB 325 MG TAB PO PRN (18:38)
[2022-06-06] MEDS ORDERED: IPRATROPIUM-ALBUTEROL 3 ML NEB INHALATION SCH (20:00)
[2022-06-06] MEDS: IPRATROPIUM 0.5 MG/2.5 ML NEBU INHALATION SCH (20:37)
[2022-06-06] MEDS: ALBUTEROL NEBULIZED 2.5 MG/3 ML INHALATION SCH (20:37)
[2022-06-06] MEDS ORDERED: ZOLPIDEM 5 MG TAB PO PRN (21:43)
[2022-06-06] MEDS: AMOXIC-POT CLAV 875-125MG 1 EACH TAB PO SCH (21:47)
[2022-06-06] MEDS: ATORVASTATIN 80 MG TAB PO SCH (21:52)
[2022-06-07] MEDS: HEPARIN SODIUM,PORCINE/PF 5,000 UNIT/0.5 ML SYRINGE SQ SCH ×3 (00:05→15:36)
--- NOTE | 2022-06-07 02:36 | P.HPIM ---
History of Present Illness H&P Date: 06/06/22 Chief Complaint: shortness of breath 62 year old female with COPD , CLL s/p BM transplant. she is coming in with 1week history of feeling sick , all started after taking care of her sick grandkid, she also reports her having some URI symptoms . she gradually was getting sicker, about 5 days ago , she went to an urgent care, and was given a prescription for prednison and amoxicillin . however, her symptoms progressed after this with last 4 days having progressive KIKI, with some congestion and productive cough with specs of blood. in her sputum . she reports chills but no fever, no body aches, no chest pain , no nausea or vomiting , no abd pain she does not use home oxygen .she quit smoking 13 years ago . denies other drugs or alcohol . Review of Systems Pertinent positives as noted in HPI. 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 SHINGLES - 2020 History of Any Multi-Drug Resistant Organisms: None Reported Past Surgical History: Section, Tubal Ligation Additional Past Surgical History / Comment(s): BIOPSY OF NECK X2, port/later removed, bone marrow transplant,stem cell transplant, lymph node biopsy. Sinus surgery x 2. Past Anesthesia/Blood Transfusion Reactions: Family History of Problems w/ Anesthesia, Postoperative Nausea & Vomiting (PONV) Past Psychological History: No Psychological Hx Reported Smoking Status: Former smoker Past Alcohol Use History: None Reported Past Drug Use History: Marijuana - Past Family History Mother Additional Family Medical History / Comment(s): AML Medications and Allergies Home Medications Medication Instructions Recorded Confirmed Type Albuterol Sulfate [Ventolin HFA] 2 puff INHALATION RT-QID PRN 07/12/13 06/06/22 History Budesonide/Formoterol Fumarate 2 puff INHALATION RT-BID 07/12/13 06/06/22 History [Symbicort 160-4.5 Mcg Inhaler] Fish Oil/Dha/Epa [Fish Oil 1,200 1 cap PO DAILY 07/12/13 06/06/22 History mg Fish Oil] Multivitamins, Thera [Multivitamin] 1 tab PO DAILY 07/12/13 06/06/22 History Zolpidem [Ambien] 2.5 - 5 mg PO HS PRN 07/12/13 06/06/22 History Calcitonin Nasal [Fortical 1 spray NASAL DAILY 10/06/17 06/06/22 History (Miacalcin)] Calcium Carbonate [Calcium] 600 mg PO DAILY 10/06/17 06/06/22 History Acyclovir 400 mg PO BID 04/11/20 06/06/22 History Sulfamethox-Tmp 400-80Mg [Bactrim 1 tab PO DAILY 07/13/21 06/06/22 History SS 400-80 mg] Albuterol Nebulized [Ventolin 2.5 mg INHALATION RT-Q6H PRN 06/06/22 06/06/22 History Nebulized] Alendronate Sodium 70 mg PO FR 06/06/22 06/06/22 History Amoxic-Pot Clav 875-125Mg 1 tab PO BID 06/06/22 06/06/22 History [Augmentin 875-125] Cetirizine HCl [Zyrtec] 10 mg PO DAILY 06/06/22 06/06/22 History Cholecalciferol [Vitamin D3 (25 50 mcg PO DAILY 06/06/22 06/06/22 History Mcg = 1000 Iu)] Esomeprazole Magnesium [NexIUM 20 mg PO DAILY 06/06/22 06/06/22 History 24Hr] Folic Acid 0.4 mg PO DAILY 06/06/22 06/06/22 History Ibuprofen [Motrin] 800 mg PO Q8H PRN 06/06/22 06/06/22 History Magnesium 250 mg PO DAILY 06/06/22 06/06/22 History Rosuvastatin Calcium [Crestor] 40 mg PO HS 06/06/22 06/06/22 History Vitamin E (Dl,Tocopheryl Acet) 400 unit PO BID 06/06/22 06/06/22 History [Vitamin E (400 Iu = 180 mg)] cycloSPORINE 0.05% OPHTH SOLN 1 applicator BOTH EYES Q12H 06/06/22 06/06/22 History [Restasis] predniSONE See Taper PO DIRECTED 06/06/22 06/06/22 History Allergies Allergy/AdvReac Type Severity Reaction Status Date / Time erythromycin base Allergy Unknown Nausea & Verified 06/06/22 19:15 [Erythromycin Base] Vomiting Physical Exam Vitals: Vital Signs Temp Pulse Resp BP Pulse Ox 06/06/22 20:49 88 06/06/22 20:37 80 06/06/22 18:57 80 18 160/90 95 06/06/22 15:53 98.8 F 93 18 154/82 86 L Intake and Output 06/06/22 06/06/22 06/06/22 06:59 14:59 22:59 Other: Weight 46.266 kg Constitutional: No acute distress, conversant, pleasant Eyes: Anicteric sclerae, moist conjunctiva, Pupils equal round reactive to light ENMT: NC/AT Oropharynx clear, no erythema, or exudates Neck: Supple, no masses, or JVD No carotid bruits No thyromegaly Lungs: Clear to auscultation Clear to percussion Normal respiratory effort, no accessory muscle use Cardiovascular: Heart regular in rate and rhythm, No murmurs, gallops, or rubs No peripheral edema Abdominal: Soft Nontender, no guarding, rebound or rigidity Abdomen moving with respiration Normoactive bowel sounds No hepatomegaly, No splenomegaly No palpable mass No abdominal wall hernia noted Skin: Normal temperature, tone, texture, turgor Extremities: No digital cyanosis No clubbing Pedal pulses intact and symmetrical Radial pulses intact and symmetrical No calf tenderness Psychiatric: Alert and oriented to person, place and time Appropriate affect Neuro Muscles Strength 5/5 in all 4 extremities Sensation to light touch grossly present throughout Cranial nerves II-XII grossly intact Lymphatics: no palpable cervical or supraclavicular lymph nodes Results CBC & Chem 7: 06/06/22 17:00 06/06/22 17:00 Labs: Abnormal Lab Results - Last 24 Hours (Table) 06/06/22 06/06/22 06/06/22 Range/Units 17:00 17:00 17:00 MCV 106.5 H (80.0-100.0) fL MCH 35.3 H (25.0-35.0) pg RDW 16.3 H (11.5-15.5) % Nucleated RBCs 6 H (0-0) /100 WBC Macrocytosis Marked A APTT 20.9 L (22.0-30.0) sec BUN 18 H (7-17) mg/dL Glucose 188 H (74-99) mg/dL Plasma Lactic Acid Inderjit (0.7-2.0) mmol/L 06/06/22 Range/Units 17:00 MCV (80.0-100.0) fL MCH (25.0-35.0) pg RDW (11.5-15.5) % Nucleated RBCs (0-0) /100 WBC Macrocytosis APTT (22.0-30.0) sec BUN (7-17) mg/dL Glucose (74-99) mg/dL Plasma Lactic Acid Inderjit 2.2 H* (0.7-2.0) mmol/L Assessment and Plan Assessment: 62 year old female with COPD , coming in for worsening SOB and cough. I discussed the case with ED doc , patient hypoxic upon arrival to the ED, and having elevated lactic acid, I accepted the admission for COPD exacerbation treatment with anticipated length of stay > 2 midnights acute hypoxic respiratory failure acute COPD exacerbation CXR increase opacity possibly secondary to atelactesis supplemental oxygen as needed duo neb q4 hrs prn systemic PO prednisone antibiotics for antiinflammatory effect with doxycyclin 100 mg bid monitor vital signs rn cardiac rehab acute respiratory viral panel negative for covid , influenza and RSV supportive care blood work reviewed , showing no leukocytosis WBC 7.3 , no anemia hgb 14 . plt 247 renal function unremarkable with BUN 18 cr 0.6, Na 141 , K 4 DVT PPX heparin sc tid full code
[2022-06-07] MEDS: SYMBICORT 160-4.5 MCG INHALER INHALATION SCH ×3 (02:37→19:25)
[2022-06-07] MEDS: PANTOPRAZOLE 40 MG TABLET PO SCH (05:21)
[2022-06-07] MEDS: IPRATROPIUM 0.5 MG/2.5 ML NEBU INHALATION SCH ×4 (08:19→19:25)
[2022-06-07] MEDS: ALBUTEROL NEBULIZED 2.5 MG/3 ML INHALATION SCH ×4 (08:19→19:25)
[2022-06-07] MEDS ORDERED: predniSONE 20 MG TAB PO SCH (09:00)
[2022-06-07] MEDS: DOXYCYCLINE 100 MG CAP PO SCH ×2 (09:44→21:07)
[2022-06-07] MEDS: AMOXIC-POT CLAV 875-125MG 1 EACH TAB PO SCH (09:45)
[2022-06-07] MEDS: LORATADINE 10 MG TAB PO SCH (09:45)
--- NOTE | 2022-06-07 13:24 | P.CNPUL ---
History of Present Illness Consult date: 06/07/22 Requesting physician: Rosette Land Reason for consult: dyspnea, COPD Chief complaint: Shortness of breath, cough, congestion History of present illness: This very pleasant 62-year-old female patient with a known history of chronic obstructive pulmonary disease with an FEV1 value of 50% of predicted. She is not on home oxygen. She has a 1 week history of increasing shortness of breath, cough and congestion. She was seen in urgent care received antibiotics and steroids without much improvement. She did have some blood-tinged sputum. Some chest tightness. She presented here to the emergency room yesterday for the same. Chest x-ray revealed chronic emphysematous changes with right middle lobe opacity suspect lobar atelectasis. White count 7.3. Hemoglobin 14.0. Platelets 247. Sodium 141. Potassium 4.0. Bicarb any 6. BUN 18. Creatinine 0.60. Glucose 188. AST 27. ALT 33. ProBNP 126. Troponin negative 1. RSV screen negative. Influenza screen negative. COVID-19 screen negative. She's been initiated on Symbicort, DuoNeb inhalations, prednisone taper. Antibiotics in the form of Augmentin and doxycycline. Heparin for DVT prophylaxis. She is currently sitting up at the bedside. Awake and alert in no acute distress. Maintaining O2 saturations in the 90s on 5 L high flow nasal cannula. Feeling a bit better today compared to yesterday. Not quite back to her baseline. She's been afebrile. Hemodynamically stable. Review of Systems REVIEW OF SYSTEMS: CONSTITUTIONAL: Denies any recent significant weight loss or weight gain. EYES: Denies change in vision. EARS, NOSE, MOUTH, THROAT: Denies headaches, denies sore throat. CARDIOVASCULAR: Denies chest pain, palpitations or syncopal episodes. RESPIRATORY: Positive for shortness of breath, cough, congestion no hemoptysis. GASTROINTESTINAL: Denies change in appetite, denies abdominal pain GENITOURINARY: Denies hematuria, denies infections. MUSKULOSKELETAL: Denies pain, denies swelling. INTEGUMENTARY: Denies rash, denies eczema. NEUROLOGICAL: Denies recent memory loss, no recent seizure activity. PSYCHIATRIC: Denies anxiety, denies depression. HEMATOLOGIC/LYMPHATIC: Denies anemia, denies enlarged lymph nodes. 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 SHINGLES - 2020 History of Any Multi-Drug Resistant Organisms: None Reported Past Surgical History: Section, Tubal Ligation Additional Past Surgical History / Comment(s): BIOPSY OF NECK X2, port/later removed, bone marrow transplant,stem cell transplant, lymph node biopsy. Sinus surgery x 2. Past Anesthesia/Blood Transfusion Reactions: Family History of Problems w/ Anesthesia, Postoperative Nausea & Vomiting (PONV) Past Psychological History: No Psychological Hx Reported Smoking Status: Former smoker Past Alcohol Use History: None Reported Past Drug Use History: Marijuana - Past Family History Mother Additional Family Medical History / Comment(s): AML Medications and Allergies Home Medications Medication Instructions Recorded Confirmed Type Albuterol Sulfate [Ventolin HFA] 2 puff INHALATION RT-QID PRN 07/12/13 06/06/22 History Budesonide/Formoterol Fumarate 2 puff INHALATION RT-BID 07/12/13 06/06/22 History [Symbicort 160-4.5 Mcg Inhaler] Fish Oil/Dha/Epa [Fish Oil 1,200 1 cap PO DAILY 07/12/13 06/06/22 History mg Fish Oil] Multivitamins, Thera [Multivitamin] 1 tab PO DAILY 07/12/13 06/06/22 History Zolpidem [Ambien] 2.5 - 5 mg PO HS PRN 07/12/13 06/06/22 History Calcitonin Nasal [Fortical 1 spray NASAL DAILY 10/06/17 06/06/22 History (Miacalcin)] Calcium Carbonate [Calcium] 600 mg PO DAILY 10/06/17 06/06/22 History Acyclovir 400 mg PO BID 04/11/20 06/06/22 History Sulfamethox-Tmp 400-80Mg [Bactrim 1 tab PO DAILY 07/13/21 06/06/22 History SS 400-80 mg] Albuterol Nebulized [Ventolin 2.5 mg INHALATION RT-Q6H PRN 06/06/22 06/06/22 History Nebulized] Alendronate Sodium 70 mg PO FR 06/06/22 06/06/22 History Amoxic-Pot Clav 875-125Mg 1 tab PO BID 06/06/22 06/06/22 History [Augmentin 875-125] Cetirizine HCl [Zyrtec] 10 mg PO DAILY 06/06/22 06/06/22 History Cholecalciferol [Vitamin D3 (25 50 mcg PO DAILY 06/06/22 06/06/22 History Mcg = 1000 Iu)] Esomeprazole Magnesium [NexIUM 20 mg PO DAILY 06/06/22 06/06/22 History 24Hr] Folic Acid 0.4 mg PO DAILY 06/06/22 06/06/22 History Ibuprofen [Motrin] 800 mg PO Q8H PRN 06/06/22 06/06/22 History Magnesium 250 mg PO DAILY 06/06/22 06/06/22 History Rosuvastatin Calcium [Crestor] 40 mg PO HS 06/06/22 06/06/22 History Vitamin E (Dl,Tocopheryl Acet) 400 unit PO BID 06/06/22 06/06/22 History [Vitamin E (400 Iu = 180 mg)] cycloSPORINE 0.05% OPHTH SOLN 1 applicator BOTH EYES Q12H 06/06/22 06/06/22 History [Restasis] predniSONE See Taper PO DIRECTED 06/06/22 06/06/22 History Allergies Allergy/AdvReac Type Severity Reaction Status Date / Time erythromycin base Allergy Unknown Nausea & Verified 06/06/22 19:15 [Erythromycin Base] Vomiting Physical Exam Vitals: Vital Signs Temp Pulse Pulse Resp BP BP Pulse Ox 06/07/22 12:31 90 L 06/07/22 12:19 76 06/07/22 12:01 76 06/07/22 10:48 20 06/07/22 08:31 82 06/07/22 08:19 80 92 L 06/07/22 07:59 74 18 06/07/22 07:10 97.7 F 74 18 156/72 90 L 06/07/22 01:28 98.2 F 75 18 131/65 99 06/06/22 21:00 98.5 F 88 20 160/78 96 06/06/22 20:49 88 06/06/22 20:37 80 06/06/22 18:57 80 18 160/90 95 06/06/22 15:53 98.8 F 93 18 154/82 86 L Intake and Output 06/06/22 06/07/22 06/07/22 22:59 06:59 14:59 Other: Voiding Method Toilet Weight 46.266 kg GENERAL EXAM: Alert, pleasant 62-year-old female, on 5 L nasal cannula, fairly comfortable in no apparent distress. HEAD: Normocephalic. EYES: Normal reaction of pupils, equal size. NOSE: Clear with pink turbinates. THROAT: No erythema or exudates. NECK: No masses, no JVD. CHEST: No chest wall deformity. LUNGS: Equal air entry with bilateral end expiratory wheeze, few scattered rhonchi, diminished. CVS: S1 and S2 normal with no audible murmur, regular rhythm. ABDOMEN: No hepatosplenomegaly, normal bowel sounds, no guarding or rigidity. SPINE: No scoliosis or deformity SKIN: No rashes CENTRAL NERVOUS SYSTEM: No focal deficits, tone is normal in all 4 extremities. EXTREMITIES: There is no peripheral edema. No clubbing, no cyanosis. Peripheral pulses are intact. Results - Laboratory Findings CBC and BMP: 06/06/22 17:00 06/06/22 17:00 PT/INR, D-dimer PT 9.4 sec (9.0-12.0) 06/06/22 17:00 INR 0.9 (<1.2) 06/06/22 17:00 Abnormal lab findings: Abnormal Labs 06/06/22 06/06/22 06/06/22 17:00 17:00 17:00 MCV 106.5 H MCH 35.3 H RDW 16.3 H Nucleated RBCs 6 H Macrocytosis Marked A APTT 20.9 L BUN 18 H Glucose 188 H Plasma Lactic Acid Inderjit 06/06/22 17:00 MCV MCH RDW Nucleated RBCs Macrocytosis APTT BUN Glucose Plasma Lactic Acid Inderjit 2.2 H* - Diagnostic Findings Chest x-ray: image reviewed Assessment and Plan Assessment: Acute hypoxemic respiratory failure secondary to an acute exacerbation of chronic obstructive pulmonary disease. Failed outpatient treatment History of chronic obstructive pulmonary disease with FEV1 value 50% of predicted. No home oxygen. Maintained on Symbicort and albuterol. Former smoker Hyperlipidemia History of gastroesophageal reflux disease Plan: The patient was seen and evaluated Chest x-ray, medications and labs reviewed Continue bronchodilators, prednisone Empiric antibiotics for now Check a pro calcitonin Room for DVT prophylaxis. We will continue to follow and make further recommendations based on her clinical status I have personally seen and examined the patient, performed the documentation and the assessment and plan as written. Number of minutes spent on the visit: 20.
--- NOTE | 2022-06-07 14:55 | CT ---
EXAMINATION TYPE: CT angio chest DATE OF EXAM: 06/07/2022 COMPARISON: Chest CT October 10, 2016 HISTORY: Pulmonary emboli. Hypoxia. CT DLP: 166 mGycm. Automated Exposure Control for Dose Reduction was Utilized. CONTRAST: CTA scan of the thorax is performed with IV Contrast, patient injected with 60 mL of Isovue 370, pulm onary embolism protocol. MIP Images are created on CT scanner and reviewed. FINDINGS: LUNGS: Mild underlying emphysematous change is redemonstrated. Mild left to right bibasilar linear sc arring and/or atelectasis. No pleural effusion or pneumothorax seen bilaterally. Stable focal chronic consolidation/atelectatic change in the right middle lobe medially extending from the hilum axial im ages 78 through 89. No new suspicious focal consolidation or groundglass opacity. MEDIASTINUM: There is suboptimal study but no CT evidence for acute pulmonary embolism. Satisfactory enhancement of the aorta without aneurysm or dissection. There are no greater than 1 cm hilar or medi astinal lymph nodes. No cardiomegaly or pericardial effusion is seen. Coronary artery calcification is redemonstrated. OTHER: No additional significant abnormality is seen. IMPRESSION: No CT evidence for acute pulmonary embolism. Mild emphysematous change redemonstrated. Th ere is mild to moderate parenchymal scarring and/or atelectasis in the lower lungs redemonstrated. No new acute pulmonary process.
[2022-06-07] MEDS ORDERED: ALBUTEROL NEBULIZED 2.5 MG/3 ML INHALATION PRN (15:16)
[2022-06-07] MEDS ORDERED: methylPREDNISolone SOD SUCCI 125 MG/2 ML VIAL IV STA (15:19)
[2022-06-07] MEDS ORDERED: predniSONE 10 MG TAB PO SCH (15:30)
--- NOTE | 2022-06-07 15:32 | P.PN ---
Subjective Progress Note Date: 06/07/22 Hospital course: Patient is a very pleasant 62-year-old female with a past medical history of CLL status post bone marrow transplant, history of qynea-[id number] disease, COPD not home oxygen dependent, hypertension, hyperlipidemia, and former nicotine dependence quitting smoking over 13 years ago. She presented to the emergency department on 06/06/22 with a chief complaint of progressively worsening shortness of breath. Patient reports she thought she was exposed to a viral infection like croup by her grandson a little over a week ago and went to an urgent care and was prescribed a course of steroids and antibiotics (prednisone and amoxicillin) and discharged back home. Patient reports that over the past 5 days her symptoms significantly worsened and she was having severe shortness of breath, congestion, and productive cough and came to the emergency department for evaluation. Patient underwent full evaluation in the emergency department. Labs completed and reviewed. CBC, coags, and CMP showing no significant abnormalities. Initial lactate was elevated at 2.2 with repeat lactate of 1.3. Influenza A, influenza B, RSV, and Covid PCR were all negative. Troponin less than 0.012 and pro-BMP was 126. EKG was completed showing normal sinus rhythm at 86 bpm with no noted T wave or ST abnormality showing no signs of acute ischemia upon personal review and interpretation. Chest x-ray was completed showing chronic emphysematous changes with right middle lobe opacity concerning for atelectasis or obstructive mucous plug. Patient was admitted under our services with consultation to pulmonology. Physical exam: Vital signs reviewed and stable. General: Nontoxic, no distress and appears stated age. Patient thin build. Derm: Skin warm and dry, normal coloration for ethnicity. Head: Atraumatic, normocephalic and symmetric. Eyes: EOMs intact, no lid lag, and anicteric sclera Mouth: no lip lesions, mucus membranes moist Cardiovascular: regular rate and rhythm with normal S1S2, no murmur, positive posterior tibial pulses bilaterally, and cap refill < 2 seconds. Lungs: Respirations even, regular, and unlabored on 5L O2. Lungs diminished with soft expiratory wheezes, no rhonchi, rales, or crackles heard upon auscultation. No accessory muscle usage. Abdominal: soft, nontender to palpation, no guarding, no appreciable organomegaly Ext: ROM intact. No gross muscle atrophy, no edema, no contractures Neuro: Speech clear, face symmetrical and CN II-XII grossly intact with no noted focal neuro deficits Psych: Alert and oriented to person, place, time, and situation. Appropriate and pleasant affect. 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 -Oxygenation to be administered and titrated as needed to maintain SPO2 equal to or greater than 90%. Patient currently on 5 L O2 with SpO2 of 90%. -Telemetry monitoring. -Monitor Pulse-oximetry -Scheduled Atrovent and albuterol 4 times daily as well as needed albuterol nebulizer treatments for SOB and/or wheezing -Incentive Spirometry -Steroids: Oral prednisone discontinued and patient started on Solu-Medrol 125 mg IVP 1 dose followed by 40 mg IVP every 8 hours. -Antibiotics: Doxycycline 100 mg twice a day -Order placed for ABG and echocardiogram. Labs completed and reviewed. CBC, coags, and CMP showing no significant abnormalities. Initial lactate was elevated at 2.2 with repeat lactate of 1.3. Influenza A, influenza B, RSV, and Covid PCR were all negative. Troponin less than 0.012 and pro-BMP was 126. EKG was completed showing normal sinus rhythm at 86 bpm with no noted T wave or ST abnormality showing no signs of acute ischemia upon personal review and interpretation. Chest x-ray was completed showing chronic emphysematous changes with right middle lobe opacity concerning for atelectasis or obstructive mucous plug. Patient was admitted under our services with consultation to pulmonology. CODE STATUS: Full code DVT prophylaxis: Heparin Discussed with: Patient and, pulmonary DIESEL LOCOMOTIVE ENGINEER, and RN Anticipated discharge date: Clinical course to determine Anticipated discharge place: Home Patient was seen independently by Nurse Pracitioner. This document was prepared using [employer] dictation software. Please allow for errors in lane marker installer, while rare they do occur. I reviewed the documentation as provided by the LITZY above, who is the original author of this note. I agree with the documented assessment and plan, with the following changes: none Objective - Vital Signs Vital signs: Vital Signs Temp 97.7 F 06/07/22 07:10 Pulse 82 06/07/22 08:31 Resp 18 06/07/22 07:59 BP 156/72 06/07/22 07:10 Pulse Ox 92 L 06/07/22 08:19 FiO2 Intake & Output 06/06/22 06/07/22 06/07/22 18:59 06:59 18:59 Weight 46.266 kg 46.266 kg - Labs CBC & Chem 7: 06/06/22 17:00 06/06/22 17:00 Labs: Abnormal Lab Results - Last 24 Hours (Table) 06/06/22 06/06/22 06/06/22 Range/Units 17:00 17:00 17:00 MCV 106.5 H (80.0-100.0) fL MCH 35.3 H (25.0-35.0) pg RDW 16.3 H (11.5-15.5) % Nucleated RBCs 6 H (0-0) /100 WBC Macrocytosis Marked A APTT 20.9 L (22.0-30.0) sec BUN 18 H (7-17) mg/dL Glucose 188 H (74-99) mg/dL Plasma Lactic Acid Inderjit (0.7-2.0) mmol/L 06/06/22 Range/Units 17:00 MCV (80.0-100.0) fL MCH (25.0-35.0) pg RDW (11.5-15.5) % Nucleated RBCs (0-0) /100 WBC Macrocytosis APTT (22.0-30.0) sec BUN (7-17) mg/dL Glucose (74-99) mg/dL Plasma Lactic Acid Inderjit 2.2 H* (0.7-2.0) mmol/L
[2022-06-07 15:41] LABS: Glucose,Whole Blood 242 mg/dL (70-110)
[2022-06-07 15:55] LABS: ABG HCO3 25 mmol/L (21-25); ABG Oxygen Saturation 90.4 % (94-97); ABG PCO2 38 mmHg (35-45); ABG PH 7.43 (7.35-7.45); ABG TCO2 26 mmol/L (19-24); Allen Test Performed? Yes
[2022-06-07 16:09] LABS: ABG PO2 56 mmHg (83-108)
--- NOTE | 2022-06-07 19:30 | P.EN ---
Patient became increasingly hypoxic today first escalating to 6 L oxygen requirement saturating 90%, then saturating only 87-88% on nonrebreather. Patient's heart rates spiked to 145 as well. Patient did undergo CT angiography to rule out pulmonary embolism earlier today, and this did not demonstrate findings of pulmonary embolism, no acute parenchymal abnormality is were noted. However, she did have chronic changes of COPD with diffuse bullous changes. Suspicion of right to left shunting was entertained due to inability to correct hypoxia with oxygen supplementation, therefore, echocardiogram was ordered. ABG was ordered which demonstrated pH of 7.43, pCO2 of 43, pO2 of 56 on 6 L of nasal cannula. ICU physician was contacted regarding the change in patient status, patient was subsequently transferred to the intensive care unit. Patient was started on BiPAP with settings of 14/8, FiO2 100%, was able to improve to a saturation of 99% with these settings.
[2022-06-07 20:07] LABS: Glucose,Whole Blood 259 mg/dL (70-110)
[2022-06-07] MEDS ORDERED: ALPRAZolam 0.25 MG TAB PO STA (20:49)
[2022-06-07] MEDS: ATORVASTATIN 80 MG TAB PO SCH (20:57)
[2022-06-07] MEDS: ACYCLOVIR 200 MG CAP PO SCH (21:07)
[2022-06-08] MEDS: HEPARIN SODIUM,PORCINE/PF 5,000 UNIT/0.5 ML SYRINGE SQ SCH ×4 (00:36→23:23)
--- NOTE | 2022-06-08 06:51 | XR ---
EXAMINATION TYPE: XR chest 1V portable DATE OF EXAM: 06/08/2022 COMPARISON: 06/06/2022 HISTORY: Bipap TECHNIQUE: Single frontal view of the chest is obtained. FINDINGS: The lungs are clear no abnormal airspace opacification or abnormal interstitial density. There is no pleural effusion or pneumothorax. Heart size is normal and the pulmonary vasculature is not congested. There are probable chronic rotat or cuff tears otherwise the osseous structures are intact. IMPRESSION: No acute cardiopulmonary disease.
[2022-06-08 07:07] LABS: Basophils % (A) 0 %; Eosinophils # (A) 0.1 k/uL (0-0.7); Eosinophils % (A) 0 %; HCT 42.8 % (34.0-46.0); HGB 13.9 gm/dL (11.4-16.0); Lymphocytes # (A) 1.4 k/uL (1.0-4.8); Lymphocytes % (A) 10 %; MCHC 32.5 g/dL (31.0-37.0); MCV 107.7 fL (80.0-100.0); Monocytes % (A) 7 %; Neutrophils # (A) 10.6 k/uL (1.3-7.7); Neutrophils % (A) 80 %; Platelet Count 298 k/uL (150-450); RBC 3.97 m/uL (3.80-5.40); RDW 15.8 % (11.5-15.5); WBC 13.3 k/uL (3.8-10.6)
[2022-06-08 07:25] LABS: African American GFR (CKD) >90 (>60 ml/min/1.73 sqM); Anion Gap 9 mmol/L; Blood Urea Nitrogen 26 mg/dL (7-17); Calcium 9.3 mg/dL (8.4-10.2); Carbon Dioxide 25 mmol/L (22-30); Chloride 108 mmol/L (98-107); Glucose 129 mg/dL (74-99); Non-African American GFR(CKD) >90 (>60 ml/min/1.73 sqM); Potassium 4.2 mmol/L (3.5-5.1); Sodium 142 mmol/L (137-145)
[2022-06-08 07:50] LABS: Macrocytosis Marked
[2022-06-08] MEDS ORDERED: methylPREDNISolone SOD SUCCI 40 MG/ML 1 ML VIAL IV SCH (08:00)
[2022-06-08] MEDS: ALBUTEROL NEBULIZED 2.5 MG/3 ML INHALATION SCH ×4 (08:04→20:40)
[2022-06-08] MEDS: IPRATROPIUM 0.5 MG/2.5 ML NEBU INHALATION SCH ×4 (08:04→20:40)
[2022-06-08] MEDS: SYMBICORT 160-4.5 MCG INHALER INHALATION SCH ×2 (08:04→20:40)
[2022-06-08] MEDS: LORATADINE 10 MG TAB PO SCH (08:22)
[2022-06-08] MEDS: DOXYCYCLINE 100 MG CAP PO SCH ×2 (08:22→20:37)
[2022-06-08] MEDS: PANTOPRAZOLE 40 MG TABLET PO SCH (08:22)
[2022-06-08] MEDS: ACYCLOVIR 200 MG CAP PO SCH ×2 (08:22→20:37)
--- NOTE | 2022-06-08 12:27 | P.PN ---
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 She is not on home oxygen. She has a 1 week history of increasing shortness of breath, cough and congestion. She was seen in urgent care received antibiotics and steroids without much improvement. She did have some blood-tinged sputum. Some chest tightness. She presented here to the emergency room yesterday for the same. Chest x-ray revealed chronic emphysematous changes with right middle lobe opacity suspect lobar atelectasis. White count 7.3. Hemoglobin 14.0. Platelets 247. Sodium 141. Potassium 4.0. Bicarb any 6. BUN 18. Creatinine 0.60. Glucose 188. AST 27. ALT 33. ProBNP 126. Troponin negative 1. RSV screen negative. Influenza screen negative. COVID-19 screen negative. She's been initiated on Symbicort, DuoNeb inhalations, prednisone taper. Antibiotics in the form of Augmentin and doxycycline. Heparin for DVT prophylaxis. She is currently sitting up at the bedside. Awake and alert in no acute distress. Maintaining O2 saturations in the 90s on 5 L high flow nasal cannula. Feeling a bit better today compared to yesterday. Not quite back to her baseline. She's been afebrile. Hemodynamically stable. Reevaluated today on 06/08/2022, patient had to be transferred yesterday to the ICU mostly because her oxygen requirement has gone up, and the patient was developing more and more shortness of breath. Her CT angiogram of the chest showed no evidence of pulmonary embolism, it did show evidence of COPD, but no major acute changes noted. Patient had to be placed on BiPAP last night. 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 She is on relatively good course regimen of bronchodilators also on a good course of steroids, seems to be been doing better today, and her O2 sat requirement is coming down again to 6 L nasal cannula with O2 saturation in the 90-95 WBC count is 13.3 hemoglobin 13.9. ABG yesterday showed a pO2 of 56 pCO2 38 pH of 7.43, basic metabolic profile is normal pro-c onsider level is normal Objective - Vital Signs Vital signs: Vital Signs Temp 98.6 F 06/08/22 08:00 Pulse 86 06/08/22 12:13 Resp 16 06/08/22 11:00 BP 141/85 06/08/22 11:00 Pulse Ox 91 L 06/08/22 11:00 FiO2 60 06/08/22 08:02 Intake & Output 06/07/22 06/08/22 06/08/22 18:59 06:59 18:59 Intake Total 500 Output Total 350 200 Balance -350 300 Weight 47.4 kg Intake: Oral 500 Output: Urine 350 200 Other: Voiding Method Toilet External Catheter External Catheter # Voids 3 1 1 - Exam Physical Exam: Revealed a 62-year-old female in no distress Head: Atraumatic, normocephalic. HEENT:[Neck is supple.] [No neck masses.] [No thyromegaly.] [No JVD.] Chest: [Diminished breaths on bilaterally no crackles or rhonchi or wheezes Cardiac Exam: [Normal S1 and S2, no S3 gallop, no murmur.] Abdomen: [Soft, nontender, no megaly, no rebound, no guarding, normal bowel sounds.] Extremities: [No clubbing, no edema, no cyanosis.] Neurological Exam: [No focal neurologic deficit.] Alert oriented 3 Psychiatric: Normal mood affect and normal mental status examination. - Labs CBC & Chem 7: 06/08/22 06:47 06/08/22 06:47 Labs: Abnormal Lab Results - Last 24 Hours (Table) 06/07/22 06/07/22 06/07/22 Range/Units 15:40 15:46 20:05 WBC (3.8-10.6) k/uL MCV (80.0-100.0) fL RDW (11.5-15.5) % Neutrophils # (1.3-7.7) k/uL Macrocytosis ABG pO2 56 L* (83-108) mmHg ABG Total CO2 26 H (19-24) mmol/L ABG O2 Saturation 90.4 L (94-97) % Chloride (98-107) mmol/L BUN (7-17) mg/dL Creatinine (0.52-1.04) mg/dL Glucose (74-99) mg/dL POC Glucose (mg/dL) 242 H 259 H (70-110) mg/dL 06/08/22 06/08/22 Range/Units 06:47 06:47 WBC 13.3 H (3.8-10.6) k/uL MCV 107.7 H (80.0-100.0) fL RDW 15.8 H (11.5-15.5) % Neutrophils # 10.6 H (1.3-7.7) k/uL Macrocytosis Marked A ABG pO2 (83-108) mmHg ABG Total CO2 (19-24) mmol/L ABG O2 Saturation (94-97) % Chloride 108 H (98-107) mmol/L BUN 26 H (7-17) mg/dL Creatinine 0.46 L (0.52-1.04) mg/dL Glucose 129 H (74-99) mg/dL POC Glucose (mg/dL) (70-110) mg/dL Microbiology - Last 24 Hours (Table) 06/06/22 17:00 Blood Culture - Preliminary Blood No Growth after 24 hours 06/06/22 16:45 Blood Culture - Preliminary Blood No Growth after 24 hours Assessment and Plan Assessment: Impression: Acute hypoxic respiratory failure secondary to acute exacerbation of COPD and suspect some component of bronchiolitis obliterans secondary to bveja-nozvwp-zyzm disease. Looking back at her PFT in the office patient had an FEV1 of 50% of the predicted. Former smoker. History of bone marrow transplant. Dyslipidemia. GERD without esophagitis. Recommendation: Continue to monitor in the ICU for the next 24 hours Titrate oxygen down Continue bronchodilators and continue steroids Check echocardiogram to assess for LV dysfunction or valvular heart disease We'll continue to follow Time with Patient: Less than 30
--- NOTE | 2022-06-08 13:13 | P.PN ---
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 She had been treated with prednisone and amoxicillin through urgent care. Arrival to the ER here she was hypoxic at 86% on room air. Laboratory analysis was remarkable for a PTT of 20.9, glucose 188, lactic acid 2.2. Influenza A/B/RSV/COVID-19 testing was negative. Initial chest x-ray showed chronic emphysematous changes within the right middle lobe with possible lobar atelectasis consider obstructive mucous plugging. She was subsequently diagnosed with acute exacerbation of COPD complicated by acute hypoxic respiratory failure. She was admitted and started on prednisone and doxycycline. Pulmonary was consulted. They agreed with current plan of care and recommended checking a pro-calcitonin which came back negative at 0.07. The patient's O2 requirements increased despite aggressive treatment with steroids and bronchodilators. She was subsequently transferred to the ICU and started on BiPAP. She underwent a CTA of the chest which is negative for pulmonary embolism but demonstrated mild emphysematous changes with mild to moderate parenchymal scarring or atelectasis in the lower lungs. She was able to be weaned to 7 liters nasal cannula but 06/08/22. Patient seen and examined at bedside. She is feeling much better than yesterday. She is breathing much better. She does recount that she takes IVIG with Dr. Walters every 12 weeks for hypogammaglobulinemia. She denies any history of recurrent infections. She states this happened after her bone marrow transplant and jbxsw-sgbpdp-rdvn disease. She denies any chest pain. She does admit to poor oral intake. Vital signs reviewed General: nontoxic, no distress, temporal and buccal wasting, appears older than stated age Cardiovascular: S1S2 reg, no murmur, positive posterior tibial pulse bilateral, Lungs: Decreased breath sounds bilateral bases, no rhonchi, no rales , no accessory muscle use Abdominal: soft, nontender to palpation, no guarding, no appreciable organomegaly Ext: no gross muscle atrophy, no edema, no contractures Neuro: CN II-XI grossly intact, no focal neuro deficits Psych: Alert, oriented, appropriate affect Assessment: Acute on chronic hypoxic respiratory failure-possible acute exacerbation of COPD versus reactivation of previous tutoy-vzefjh-tsbq disease versus opportunistic infection given hypogammaglobulinemia - concern for possible viral vs fungal infection given normal procalcitonin Hypertension Dyslipidemia Hyperglycemia History of CLL status post bone marrow transplant with pxzqd-gajdyl-snqt disease-cutaneous and lung Imaging: Chest x-rays a few by myself from 06/08 reveals increased vascular markings bilaterally, minimal obscuring of the right heart border Data Review: Morning vital signs reviewed and pulse 85, respirations 14, blood pressure 158/97, 95% on BiPAP at 70% A.m. labs remarkable for white blood cell count 13.3, chloride 108, BUN 26, creatinine 0.46, glucose 129, calcium 9.3 ABG reviewed from 06/07/22 which showed a pH of 7.43, pCO2 38, pO2 56, bicarb 25 Blood sugars reviewed from yesterday were 259 and 242 Plan: -Await echocardiogram -Continue with acyclovir 400 mg twice daily. Restart her home Bactrim for PCP prophylaxis. -Continue with doxycycline 100 mg twice daily -Pulmonary note reviewed: Solu-Medrol has been decreased to 40 every 6 hours -Continue with Symbicort twice daily and Ventolin 4 times daily -Check HIV -Check beta D glucan -Check A1c -Given possibility of infection and will recheck CBC in a.m. Recheck BMP in a.m. given elevation of BUN which is likely secondary to steroids. DVT prophylaxis: Heparin SC Discussed with: Patient, nursing Anticipated discharge date: in 5-[address]: pending clinical course This dictation was prepared using [employer] voice recognition software. Though every attempt is made to correct errors during during dictation some may still exist. Objective - Vital Signs Vital signs: Vital Signs Temp 98.8 F 06/08/22 12:00 Pulse 96 06/08/22 13:00 Resp 12 06/08/22 13:00 BP 132/82 06/08/22 13:00 Pulse Ox 94 L 06/08/22 13:00 FiO2 60 06/08/22 08:02 Intake & Output 06/07/22 06/08/22 06/08/22 18:59 06:59 18:59 Intake Total 500 Output Total 350 200 Balance -350 300 Weight 47.4 kg Intake: Oral 500 Output: Urine 350 200 Other: Voiding Method Toilet External Catheter External Catheter # Voids 3 1 0 - Labs CBC & Chem 7: 06/08/22 06:47 06/08/22 06:47 Labs: Abnormal Lab Results - Last 24 Hours (Table) 06/07/22 06/07/22 06/07/22 Range/Units 15:40 15:46 20:05 WBC (3.8-10.6) k/uL MCV (80.0-100.0) fL RDW (11.5-15.5) % Neutrophils # (1.3-7.7) k/uL Macrocytosis ABG pO2 56 L* (83-108) mmHg ABG Total CO2 26 H (19-24) mmol/L ABG O2 Saturation 90.4 L (94-97) % Chloride (98-107) mmol/L BUN (7-17) mg/dL Creatinine (0.52-1.04) mg/dL Glucose (74-99) mg/dL POC Glucose (mg/dL) 242 H 259 H (70-110) mg/dL 06/08/22 06/08/22 Range/Units 06:47 06:47 WBC 13.3 H (3.8-10.6) k/uL MCV 107.7 H (80.0-100.0) fL RDW 15.8 H (11.5-15.5) % Neutrophils # 10.6 H (1.3-7.7) k/uL Macrocytosis Marked A ABG pO2 (83-108) mmHg ABG Total CO2 (19-24) mmol/L ABG O2 Saturation (94-97) % Chloride 108 H (98-107) mmol/L BUN 26 H (7-17) mg/dL Creatinine 0.46 L (0.52-1.04) mg/dL Glucose 129 H (74-99) mg/dL POC Glucose (mg/dL) (70-110) mg/dL Microbiology - Last 24 Hours (Table) 06/06/22 17:00 Blood Culture - Preliminary Blood No Growth after 24 hours 06/06/22 16:45 Blood Culture - Preliminary Blood No Growth after 24 hours
[2022-06-08] MEDS: methylPREDNISolone SOD SUCCI 40 MG/ML 1 ML VIAL IV SCH ×2 (13:57→20:37)
[2022-06-08] MEDS: ATORVASTATIN 80 MG TAB PO SCH (20:37)
[2022-06-09] MEDS: methylPREDNISolone SOD SUCCI 40 MG/ML 1 ML VIAL IV SCH ×4 (02:00→20:33)
[2022-06-09] MEDS: PANTOPRAZOLE 40 MG TABLET PO SCH (06:29)
[2022-06-09 07:43] LABS: Anisocytosis Slight; HCT 42.1 % (34.0-46.0); HGB 13.6 gm/dL (11.4-16.0); MCH 34.8 pg (25.0-35.0); MCHC 32.2 g/dL (31.0-37.0); MCV 107.9 fL (80.0-100.0); Macrocytosis Marked; Mean Platelet Volume 9.7; Platelet Count 320 k/uL (150-450); RDW 16.4 % (11.5-15.5); WBC 16.6 k/uL (3.8-10.6)
[2022-06-09] MEDS: LORATADINE 10 MG TAB PO SCH (07:53)
[2022-06-09] MEDS: HEPARIN SODIUM,PORCINE/PF 5,000 UNIT/0.5 ML SYRINGE SQ SCH ×3 (07:53→23:59)
[2022-06-09] MEDS: DOXYCYCLINE 100 MG CAP PO SCH ×2 (07:54→20:33)
[2022-06-09] MEDS: ACYCLOVIR 200 MG CAP PO SCH ×2 (07:54→20:33)
[2022-06-09 07:58] LABS: African American GFR (CKD) >90 (>60 ml/min/1.73 sqM); Anion Gap 10 mmol/L; Blood Urea Nitrogen 36 mg/dL (7-17); Calcium 9.7 mg/dL (8.4-10.2); Carbon Dioxide 28 mmol/L (22-30); Chloride 104 mmol/L (98-107); Glucose 132 mg/dL (74-99); Magnesium 2.2 mg/dL (1.6-2.3); Non-African American GFR(CKD) >90 (>60 ml/min/1.73 sqM); Phosphorus 3.5 mg/dL (2.5-4.5); Potassium 4.6 mmol/L (3.5-5.1); Sodium 142 mmol/L (137-145)
[2022-06-09] MEDS: ALBUTEROL NEBULIZED 2.5 MG/3 ML INHALATION SCH ×4 (08:15→19:18)
[2022-06-09] MEDS: IPRATROPIUM 0.5 MG/2.5 ML NEBU INHALATION SCH ×4 (08:15→19:17)
[2022-06-09] MEDS: SYMBICORT 160-4.5 MCG INHALER INHALATION SCH ×2 (08:16→19:18)
--- NOTE | 2022-06-09 10:01 | XR ---
EXAMINATION TYPE: XR chest 1V portable DATE OF EXAM: 06/09/2022 COMPARISON: 06/08/2022 HISTORY: Shortness of breath TECHNIQUE: Single frontal view of the chest is obtained. FINDINGS: There is no focal air space opacity, pleural effusion, or pneumothorax seen. The cardiac silhouette size is within normal limits. The osseous structures are intact. IMPRESSION: No acute cardiopulmonary disease with no interval change.
--- NOTE | 2022-06-09 11:26 | P.PN ---
Subjective Progress Note Date: 06/09/22 This very pleasant 62-year-old female patient with a known history of chronic obstructive pulmonary disease with an FEV1 value of 50% of predicted. She is not on home oxygen. She has a 1 week history of increasing shortness of breath, cough and congestion. She was seen in urgent care received antibiotics and steroids without much improvement. She did have some blood-tinged sputum. Some chest tightness. She presented here to the emergency room yesterday for the same. Chest x-ray revealed chronic emphysematous changes with right middle lobe opacity suspect lobar atelectasis. White count 7.3. Hemoglobin 14.0. Platelets 247. Sodium 141. Potassium 4.0. Bicarb any 6. BUN 18. Creatinine 0.60. Glucose 188. AST 27. ALT 33. ProBNP 126. Troponin negative 1. RSV screen negative. Influenza screen negative. COVID-19 screen negative. She's been initiated on Symbicort, DuoNeb inhalations, prednisone taper. Antibiotics in the form of Augmentin and doxycycline. Heparin for DVT prophylaxis. She is currently sitting up at the bedside. Awake and alert in no acute distress. Maintaining O2 saturations in the 90s on 5 L high flow nasal cannula. Feeling a bit better today compared to yesterday. Not quite back to her baseline. She's been afebrile. Hemodynamically stable. Reevaluated today on 06/08/2022, patient had to be transferred yesterday to the ICU mostly because her oxygen requirement has gone up, and the patient was developing more and more shortness of breath. Her CT angiogram of the chest showed no evidence of pulmonary embolism, it did show evidence of COPD, but no major acute changes noted. Patient had to be placed on BiPAP last night. 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 She is on relatively good course regimen of bronchodilators also on a good course of steroids, seems to be been doing better today, and her O2 sat requirement is coming down again to 6 L nasal cannula with O2 saturation in the 90-95 WBC count is 13.3 hemoglobin 13.9. ABG yesterday showed a pO2 of 56 pCO2 38 pH of 7.43, basic metabolic profile is normal pro- consider level is normal The patient is seen today in the 2022 and follow-up on the regular medical floor. She is currently sitting up in bed. Awake and alert in no acute distress. Doing much better. No worsening shortness of breath, cough or congestion. She still is on 6 L high flow nasal cannula with O2 saturations in the 90s. She's afebrile. Hemodynamically stable. Chest x-ray is revealing no acute cardiopulmonary disease. Blood cultures revealed no growth. White count 16.6. Hemoglobin 13.6. Platelets 320. Sodium 142. Potassium 4.6. Bicarb 28. BUN 36. Creatinine 0.64. Glucose 132. She is continued on Symbicort, albuterol ipratropium bromide, IV Solu-Medrol. Heparin for DVT prophylaxis. Empiric antibiotic in the form of Vibramycin. ProCalcitonin was 0.07. Objective - Vital Signs Vital signs: Vital Signs Temp 98.4 F 06/09/22 06:54 Pulse 82 06/09/22 08:36 Resp 18 06/09/22 08:00 BP 131/89 06/09/22 06:54 Pulse Ox 90 L 06/09/22 08:16 FiO2 60 06/08/22 08:02 Intake & Output 06/08/22 06/09/22 06/09/22 18:59 06:59 18:59 Intake Total 500 Output Total 202 1 1 Balance 298 -1 -1 Intake: Oral 500 Output: Urine 200 Stool 2 1 1 Other: Voiding Method Bedside Commode Bedside Commode Toilet # Voids 0 - Exam GENERAL EXAM: Alert, very pleasant 60-year-old female, on 6 L high flow nasal cannula, comfortable in no apparent distress. HEAD: Normocephalic. EYES: Normal reaction of pupils, equal size. NOSE: Clear with pink turbinates. THROAT: No erythema or exudates. NECK: No masses, no JVD. CHEST: No chest wall deformity. LUNGS: Equal air entry with no crackles, wheeze, rhonchi or dullness. D iminished. CVS: S1 and S2 normal with no audible murmur, regular rhythm. ABDOMEN: No hepatosplenomegaly, normal bowel sounds, no guarding or rigidity. SPINE: No scoliosis or deformity SKIN: No rashes CENTRAL NERVOUS SYSTEM: No focal deficits, tone is normal in all 4 extremities. EXTREMITIES: There is no peripheral edema. No clubbing, no cyanosis. Peripheral pulses are intact. - Labs CBC & Chem 7: 06/09/22 06:17 06/09/22 06:17 Labs: Abnormal Lab Results - Last 24 Hours (Table) 06/09/22 06/09/22 Range/Units 06:17 06:17 WBC 16.6 H (3.8-10.6) k/uL MCV 107.9 H (80.0-100.0) fL RDW 16.4 H (11.5-15.5) % Macrocytosis Marked A BUN 36 H (7-17) mg/dL Glucose 132 H (74-99) mg/dL Microbiology - Last 24 Hours (Table) 06/06/22 17:00 Blood Culture - Preliminary Blood No Growth after 48 hours 06/06/22 16:45 Blood Culture - Preliminary Blood No Growth after 48 hours Assessment and Plan Assessment: Acute hypoxemic respiratory failure secondary to an acute exacerbation of chronic obstructive pulmonary disease. Failed outpatient treatment June 0.07. 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 No home oxygen. Maintained on Symbicort and albuterol. Former smoker Hyperlipidemia History of gastroesophageal reflux disease Plan: The patient was seen and evaluated Chest x-ray, medications and labs reviewed Continue bronchodilators, IV Solu-Medrol Heparin for DVT prophylaxis Titrate down the FiO2 as tolerated She does not have home oxygen We will continue to follow I have personally seen and examined the patient, performed the documentation and the assessment and plan as written. Number of minutes spent on the visit: 10.
--- NOTE | 2022-06-09 13:55 | P.PN ---
Subjective Progress Note Date: 06/09/22 Patient is a 62-year-old female with COPD, prior CLL status post bone marrow transplant complicated by kcllu-btvmwq-mhya disease of the lung, thoracic compression fractures, hypertension, dyslipidemia, GERD, and multiple other comorbid conditions who initially presented to the emergency department with complaints of upper respiratory symptoms. She had been treated with prednisone and amoxicillin through urgent care. Arrival to the ER here she was hypoxic at 86% on room air. Laboratory analysis was remarkable for a PTT of 20.9, glucose 188, lactic acid 2.2. Influenza A/B/RSV/COVID-19 testing was negative. Initial chest x-ray showed chronic emphysematous changes within the right middle lobe with possible lobar atelectasis consider obstructive mucous plugging. She was subsequently diagnosed with acute exacerbation of COPD complicated by acute hypoxic respiratory failure. She was admitted and started on prednisone and doxycycline. Pulmonary was consulted. They agreed with current plan of care and recommended checking a pro-calcitonin which came back negative at 0.07. The patient's O2 requirements increased despite aggressive treatment with steroids and bronchodilators. She was subsequently transferred to the ICU and started on BiPAP. She underwent a CTA of the chest which is negative for pulmonary embolism but demonstrated mild emphysematous changes with mild to moderate parenchymal scarring or atelectasis in the lower lungs. She was able to be weaned to 7 liters nasal cannula by 06/08/22. Patient seen and examined at bedside. Her breathing is much better. She was able to eat and drink more. She has any nausea, vomiting, upset stomach. Vital signs reviewed General: nontoxic, no distress, temporal and buccal wasting, appears older than stated age Cardiovascular: S1S2 reg, no murmur, positive posterior tibial pulse bilateral, Lungs: CTA b/l, no rhonchi, no rales , no accessory muscle use Abdominal: soft, nontender to palpation, no guarding, no appreciable organomegaly Ext: no gross muscle atrophy, no edema, no contractures Neuro: CN II-XI grossly intact, no focal neuro deficits Psych: Alert, oriented, appropriate affect Assessment: Acute on chronic hypoxic respiratory failure-e acute exacerbation of COPD versus reactivation of previous tjjri-zgsqxb-umkn disease versus opportunistic infection given hypogammaglobulinemia - concern for possible viral vs fungal infection given normal procalcitonin Hypogammaglobulinemia- on IVIG q 3 months Hypertension Dyslipidemia Hyperglycemia History of CLL status post bone marrow transplant with iggwr-tcqkir-pkin disease-cutaneous and lung Imaging: Chest x-rays a few by myself from 06/09 reveals no acute cardiopulmonary process Data Review: Morning vital signs reviewed temperature 98.4, pulse 75, respirations 18, blood pressure 131/89, O2 sat 90% on 6 L A.m. labs remarkable for white blood cell count 16.6, glucose 132 Plan: -Await echocardiogram -Continue with acyclovir 400 mg twice daily. Restart her home Bactrim for PCP prophylaxis. -Continue with doxycycline 100 mg twice daily, D # 3 -Pulmonary note reviewed: Solu-Medrol 40 every 6 hours -Continue with Symbicort twice daily and Ventolin 4 times daily -HIV was ordered but canceled by pulmonary -Await beta D glucan -Check A1c -Given possibility of infection and will recheck CBC in a.m. Recheck BMP in a.m. given elevation of BUN which is likely secondary to steroids. DVT prophylaxis: Heparin SC Discussed with: Patient, nursing Anticipated discharge date: in 5-[address]: pending clinical course This dictation was prepared using [employer] voice recognition software. Though every attempt is made to correct errors during during dictation some may still exist. Objective - Vital Signs Vital signs: Vital Signs Temp 98.4 F 06/09/22 06:54 Pulse 80 06/09/22 12:02 Resp 18 06/09/22 08:00 BP 131/89 06/09/22 06:54 Pulse Ox 90 L 06/09/22 08:16 FiO2 60 06/08/22 08:02 Intake & Output 06/08/22 06/09/22 06/09/22 18:59 06:59 18:59 Intake Total 500 Output Total 202 1 1 Balance 298 -1 -1 Intake: Oral 500 Output: Urine 200 Stool 2 1 1 Other: Voiding Method Bedside Commode Bedside Commode Toilet # Voids 0 - Labs CBC & Chem 7: 06/09/22 06:17 06/09/22 06:17 Labs: Abnormal Lab Results - Last 24 Hours (Table) 06/09/22 06/09/22 Range/Units 06:17 06:17 WBC 16.6 H (3.8-10.6) k/uL MCV 107.9 H (80.0-100.0) fL RDW 16.4 H (11.5-15.5) % Macrocytosis Marked A BUN 36 H (7-17) mg/dL Glucose 132 H (74-99) mg/dL Microbiology - Last 24 Hours (Table) 06/06/22 17:00 Blood Culture - Preliminary Blood No Growth after 48 hours 06/06/22 16:45 Blood Culture - Preliminary Blood No Growth after 48 hours
[2022-06-09] MEDS: SULFAMETHOX-TMP 400-80MG 1 EACH TAB PO SCH (14:40)
[2022-06-09] MEDS: ATORVASTATIN 80 MG TAB PO SCH (20:33)
[2022-06-10] MEDS: methylPREDNISolone SOD SUCCI 40 MG/ML 1 ML VIAL IV SCH ×4 (02:24→20:33)
[2022-06-10 05:18] LABS: Glucose,Whole Blood 143 mg/dL (70-110)
[2022-06-10] MEDS: PANTOPRAZOLE 40 MG TABLET PO SCH (06:27)
[2022-06-10] MEDS: HEPARIN SODIUM,PORCINE/PF 5,000 UNIT/0.5 ML SYRINGE SQ SCH ×2 (08:40→15:57)
[2022-06-10] MEDS: SYMBICORT 160-4.5 MCG INHALER INHALATION SCH ×2 (08:51→19:42)
[2022-06-10] MEDS: ALBUTEROL NEBULIZED 2.5 MG/3 ML INHALATION SCH ×3 (08:51→15:56)
[2022-06-10] MEDS: IPRATROPIUM 0.5 MG/2.5 ML NEBU INHALATION SCH ×3 (08:51→15:56)
[2022-06-10 09:20] LABS: HCT 37.4 % (37.2-46.3); HGB 12.4 g/dL (12.0-15.0); MCH 34.5 pg (27.0-32.0); MCHC 33.2 g/dL (32.0-37.0); MCV 104.2 fL (80.0-97.0); Platelet Count 312 X 10*3/uL (140-440); RBC 3.59 X 10*6/uL (4.10-5.20); RDW 15.7 % (11.5-14.5); WBC 18.14 X 10*3/uL (4.50-10.00)
[2022-06-10 09:21] LABS: African American GFR (CKD) 107.6 (60.0-200.0); Anion Gap 10.9 mmol/L (10.00-18.00); BUN/Creat Ratio 45.86 Ratio (12.00-20.00); Blood Urea Nitrogen 32.1 mg/dL (9.0-27.0); Carbon Dioxide 25.1 mmol/L (20.0-27.5); Non-African American GFR(CKD) 92.9 (60.0-200.0); Potassium 4.6 mmol/L (3.5-5.5)
[2022-06-10] MEDS: DOXYCYCLINE 100 MG CAP PO SCH ×2 (09:21→20:33)
[2022-06-10] MEDS: LORATADINE 10 MG TAB PO SCH (09:21)
[2022-06-10] MEDS: SULFAMETHOX-TMP 400-80MG 1 EACH TAB PO SCH (09:21)
[2022-06-10] MEDS: ACYCLOVIR 200 MG CAP PO SCH ×2 (09:21→20:33)
[2022-06-10] MEDS ORDERED: SALINE NASAL GEL 14.1 GM TUBE NASAL PRN (09:50)
--- NOTE | 2022-06-10 11:43 | P.PN ---
Subjective Progress Note Date: 06/10/22 Patient is a 62-year-old female with COPD, prior CLL status post bone marrow transplant complicated by lrsyx-okyxsm-inuy disease of the lung, thoracic compression fractures, hypertension, dyslipidemia, GERD, and multiple other comorbid conditions who initially presented to the emergency department with complaints of upper respiratory symptoms. She had been treated with prednisone and amoxicillin through urgent care. Arrival to the ER here she was hypoxic at 86% on room air. Laboratory analysis was remarkable for a PTT of 20.9, glucose 188, lactic acid 2.2. Influenza A/B/RSV/COVID-19 testing was negative. Initial chest x-ray showed chronic emphysematous changes within the right middle lobe with possible lobar atelectasis consider obstructive mucous plugging. She was subsequently diagnosed with acute exacerbation of COPD complicated by acute hypoxic respiratory failure. She was admitted and started on prednisone and doxycycline. Pulmonary was consulted. They agreed with current plan of care and recommended checking a pro-calcitonin which came back negative at 0.07. The patient's O2 requirements increased despite aggressive treatment with steroids and bronchodilators. She was subsequently transferred to the ICU and started on BiPAP. She underwent a CTA of the chest which is negative for pulmonary embolism but demonstrated mild emphysematous changes with mild to moderate parenchymal scarring or atelectasis in the lower lungs. She was able to be weaned to 7 liters nasal cannula by 06/08/22 and he oxygen was slowly weaned. Patient seen and examined at bedside. She is doing well, eating and drinking well, no nausea, no vomiting. She is breathing easier. Vital signs reviewed General: nontoxic, no distress, temporal and buccal wasting, appears older than stated age Cardiovascular: S1S2 reg, no murmur, positive posterior tibial pulse bilateral, Lungs: Decreased bs b/l, no rhonchi, no rales , no accessory muscle use Abdominal: soft, nontender to palpation, no guarding, no appreciable organomegaly Ext: no gross muscle atrophy, no edema, no contractures Neuro: CN II-XI grossly intact, no focal neuro deficits Psych: Alert, oriented, appropriate affect Assessment: Acute on chronic hypoxic respiratory failure-e acute exacerbation of COPD versus reactivation of previous iwind-fkxhck-vkgh disease versus opportunistic infection given hypogammaglobulinemia - concern for possible viral vs fungal infection given normal procalcitonin Hypogammaglobulinemia- on IVIG q 3 months Hypertension Dyslipidemia Hyperglycemia- A1C 5.7 History of CLL status post bone marrow transplant with ryafo-orvcrf-vfcz d isease-cutaneous and lung Imaging: None new Data Review: Vital signs reviewed. Temperature 98.4, pulse 80, respirations 17, blood pressure 141/84, O2 sat 95% on 6 L nasal cannula Labs reviewed and remarkable for white blood cell count 18.14, sodium 140, potassium 4.6, glucose 145, A1c 5.7 Plan: -Await echocardiogram -Continue with acyclovir 400 mg twice daily and Bactrim daily for PCP prophylaxis. -Continue with doxycycline 100 mg twice daily, D # 4 -Pulmonary note reviewed: Solu-Medrol 40 every 6 hours -Continue with Symbicort twice daily and Ventolin 4 times daily -Await beta D glucan -Given possibility of infection and will recheck CBC in a.m. Recheck BMP in a.m. given elevation of BUN which is likely secondary to steroids. DVT prophylaxis: Heparin SC Discussed with: Patient, nursing Anticipated discharge date: in 24-[address]: This dictation was prepared using [employer] voice recognition software. Though every attempt is made to correct errors during during dictation some may still exist. Objective - Vital Signs Vital signs: Vital Signs Temp 98.4 F 06/10/22 07:34 Pulse 84 06/10/22 09:10 Resp 17 06/10/22 07:34 BP 141/84 06/10/22 07:34 Pulse Ox 95 06/10/22 08:54 FiO2 60 06/08/22 08:02 Intake & Output 06/09/22 06/10/22 06/10/22 18:59 06:59 18:59 Output Total 1 Balance -1 Output: Stool 1 Other: Voiding Method Toilet - Labs CBC & Chem 7: 06/10/22 04:52 06/10/22 04:52 Labs: Abnormal Lab Results - Last 24 Hours (Table) 06/10/22 06/10/22 06/10/22 Range/Units 04:52 04:52 05:15 WBC 18.14 H (4.50-10.00) X 10*3/uL RBC 3.59 L (4.10-5.20) X 10*6/uL MCV 104.2 H (80.0-97.0) fL MCH 34.5 H (27.0-32.0) pg RDW 15.7 H (11.5-14.5) % Absolute Nucleated RBC 0.37 H (0.00-0.00) X 10*3/uL NRBC/100 WBC Diff 2.0 H (0.0-0.0) /100 WBCS BUN 32.1 H (9.0-27.0) mg/dL BUN/Creatinine Ratio 45.86 H (12.00-20.00) Ratio Glucose 145 H (70-110) mg/dL POC Glucose (mg/dL) 143 H (70-110) mg/dL Microbiology - Last 24 Hours (Table) 06/06/22 17:00 Blood Culture - Preliminary Blood No Growth after 72 hours 06/06/22 16:45 Blood Culture - Preliminary Blood No Growth after 72 hours
--- NOTE | 2022-06-10 11:47 | P.PN ---
Subjective Progress Note Date: 06/10/22 Principal diagnosis: Shortness of breath/hypoxemia. This very pleasant 62-year-old female patient with a known history of chronic obstructive pulmonary disease with an FEV1 value of 50% of predicted. She is not on home oxygen. She has a 1 week history of increasing shortness of breath, cough and congestion. She was seen in urgent care received antibiotics and steroids without much improvement. She did have some blood-tinged sputum. Some chest tightness. She presented here to the emergency room yesterday for the same. Chest x-ray revealed chronic emphysematous changes with right middle lobe opacity suspect lobar atelectasis. White count 7.3. Hemoglobin 14.0. Kellee telets 247. Sodium 141. Potassium 4.0. Bicarb any 6. BUN 18. Creatinine 0.60. Glucose 188. AST 27. ALT 33. ProBNP 126. Troponin negative 1. RSV screen negative. Influenza screen negative. COVID-19 screen negative. She's been initiated on Symbicort, DuoNeb inhalations, prednisone taper. Antibiotics in the form of Augmentin and doxycycline. Heparin for DVT prophylaxis. She is currently sitting up at the bedside. Awake and alert in no acute distress. Maintaining O2 saturations in the 90s on 5 L high flow nasal cannula. Feeling a bit better today compared to yesterday. Not quite back to her baseline. She's been afebrile. Hemodynamically stable. Reevaluated today on 06/08/2022, patient had to be transferred yesterday to the ICU mostly because her oxygen requirement has gone up, and the patient was developing more and more shortness of breath. Her CT angiogram of the chest showed no evidence of pulmonary embolism, it did show evidence of COPD, but no major acute changes noted. Patient had to be placed on BiPAP last night. 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 She is on relatively good course regimen of bronchodilators also on a good course of steroids, seems to be been doing better today, and her O2 sat requirement is coming down again to 6 L nasal cannula with O2 saturation in the 90-95 WBC count is 13.3 hemoglobin 13.9. ABG yesterday showed a pO2 of 56 pCO2 38 pH of 7.43, basic metabolic profile is normal pro- consider level is normal The patient is seen today in the 2022 and follow-up on the regular medical floor. She is currently sitting up in bed. Awake and alert in no acute distress. Doing much better. No worsening shortness of breath, cough or congestion. She still is on 6 L high flow nasal cannula with O2 saturations in the 90s. She's afebrile. Hemodynamically stable. Chest x-ray is revealing no acute cardiopulmonary disease. Blood cultures revealed no growth. White count 16.6. Hemoglobin 13.6. Platelets 320. Sodium 142. Potassium 4.6. Bicarb 28. BUN 36. Creatinine 0.64. Glucose 132. She is continued on Symbicort, albuterol ipratropium bromide, IV Solu-Medrol. Heparin for DVT prophylaxis. Empiric antibiotic in the form of Vibramycin. ProCalcitonin was 0.07. Progress note dated 06/10/2022. The patient is seen today in room 452. Currently, she is on 5 L of oxygen. Her saturations are in the mid 90s. She's not receiving any IV fluids she is undergoing an echocardiogram as we speak, with a bubble study, to rule out a right to left shunt. She has a history of bone marrow transplant for CLL. Clinically she looks well. She sees my partner in the office for her COPD. She sees her lung function is about 50% of normal. She did quit smoking 13 years ago. White count 18.1, hemoglobin 12.4, hematocrit 37.4, and platelet count 312,000. Sodium 140, potassium 4.6, chlorides 104, CO2 25, anion gap 11, BUN 32, creatinine 0.7. Blood cultures are negative. Chest x-rays consistent with COPD. Objective - Vital Signs Vital signs: Vital Signs Temp 98.4 F 06/10/22 07:34 Pulse 84 06/10/22 09:10 Resp 17 06/10/22 07:34 BP 141/84 06/10/22 07:34 Pulse Ox 95 06/10/22 08:54 FiO2 60 06/08/22 08:02 Intake & Output 06/09/22 06/10/22 06/10/22 18:59 06:59 18:59 Output Total 1 Balance -1 Output: Stool 1 Other: Voiding Method Toilet - Exam No acute distress, oriented 3. No respiratory distress, use of accessory muscles, or conversational dyspnea. HEENT examination is grossly unremarkable. Neck supple. Full range of motion. No adenopathy thyromegaly or neck vein distention. Cardiovascular examination reveals regular rhythm rate. S1-S2 normal. No S3 or S4. No discernible murmur noted. Heart rate 84 bpm. Lungs reveal scattered expiratory rhonchi and wheezes. Breath sounds equal, but in my opinion diminished throughout, consistent with emphysema. No crackles. Saturations are in the mid 90s. Abdomen soft bowel sounds are heard. No masses or tenderness. Extremities are intact. No cyanosis clubbing or edema. Skin is without rash or lesion. Neurologic examination is brief but nonfocal. - Labs CBC & Chem 7: 06/10/22 04:52 06/10/22 04:52 Labs: Abnormal Lab Results - Last 24 Hours (Table) 06/10/22 06/10/22 06/10/22 Range/Units 04:52 04:52 05:15 WBC 18.14 H (4.50-10.00) X 10*3/uL RBC 3.59 L (4.10-5.20) X 10*6/uL MCV 104.2 H (80.0-97.0) fL MCH 34.5 H (27.0-32.0) pg RDW 15.7 H (11.5-14.5) % Absolute Nucleated RBC 0.37 H (0.00-0.00) X 10*3/uL NRBC/100 WBC Diff 2.0 H (0.0-0.0) /100 WBCS BUN 32.1 H (9.0-27.0) mg/dL BUN/Creatinine Ratio 45.86 H (12.00-20.00) Ratio Glucose 145 H (70-110) mg/dL POC Glucose (mg/dL) 143 H (70-110) mg/dL Microbiology - Last 24 Hours (Table) 06/06/22 17:00 Blood Culture - Preliminary Blood No Growth after 72 hours 06/06/22 16:45 Blood Culture - Preliminary Blood No Growth after 72 hours Assessment and Plan Assessment: Acute hypoxemic respiratory failure secondary to an acute exacerbation of chronic obstructive pulmonary disease. 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 History of chronic obstructive pulmonary disease with FEV1 value 50% of p redicted. No home oxygen. Maintained on Symbicort and albuterol. Former smoker. Hyperlipidemia. History of gastroesophageal reflux disease. Plan: Plan dated 06/10/2022. The patient is currently undergoing an echocardiogram with bubble study to rule out a right to left shunt. I suspect her underlying etiology of hypoxemic and relates to her COPD, and possibly her ijdaa-zhewmb-wsbq disease/bronchiolitis obliterans syndrome. Nonetheless, she does feel better today looks better today. She was seen by my nurse practitioner yesterday. Labs, x-rays, and medications are reviewed. Prognosis is guarded. We will continue to follow make recommendations along the way. She remains on appropriate medications. Time with Patient: Less than 30
[2022-06-10] MEDS: IPRATROPIUM-ALBUTEROL 3 ML NEB INHALATION SCH (19:42)
[2022-06-10] MEDS: ATORVASTATIN 80 MG TAB PO SCH (20:33)
[2022-06-11] MEDS: HEPARIN SODIUM,PORCINE/PF 5,000 UNIT/0.5 ML SYRINGE SQ SCH ×2 (00:07→09:19)
[2022-06-11] MEDS: PANTOPRAZOLE 40 MG TABLET PO SCH (00:39)
[2022-06-11] MEDS: methylPREDNISolone SOD SUCCI 40 MG/ML 1 ML VIAL IV SCH ×3 (01:44→13:08)
[2022-06-11 08:22] LABS: African American GFR (CKD) >90 (>60 ml/min/1.73 sqM); Anion Gap 7 mmol/L; Blood Urea Nitrogen 28 mg/dL (7-17); Calcium 9.3 mg/dL (8.4-10.2); Carbon Dioxide 27 mmol/L (22-30); Chloride 101 mmol/L (98-107); Glucose 158 mg/dL (74-99); Non-African American GFR(CKD) >90 (>60 ml/min/1.73 sqM); Potassium 5.3 mmol/L (3.5-5.1); Sodium 135 mmol/L (137-145)
[2022-06-11 08:52] VITALS: RESP 19; TEMP 98.8
[2022-06-11 09:01] LABS: Anisocytosis Slight; HCT 39.1 % (34.0-46.0); HGB 12.9 gm/dL (11.4-16.0); MCH 35.2 pg (25.0-35.0); MCV 106.6 fL (80.0-100.0); Macrocytosis Marked; Mean Platelet Volume 11.6; Platelet Count 242 k/uL (150-450); RBC 3.67 m/uL (3.80-5.40); RDW 16.1 % (11.5-15.5); WBC 14.9 k/uL (3.8-10.6)
[2022-06-11] MEDS: LORATADINE 10 MG TAB PO SCH (09:18)
[2022-06-11] MEDS: SULFAMETHOX-TMP 400-80MG 1 EACH TAB PO SCH (09:18)
[2022-06-11] MEDS: DOXYCYCLINE 100 MG CAP PO SCH (09:18)
[2022-06-11] MEDS: ACYCLOVIR 200 MG CAP PO SCH (09:18)
[2022-06-11] MEDS: IPRATROPIUM-ALBUTEROL 3 ML NEB INHALATION SCH ×3 (09:35→16:02)
[2022-06-11] MEDS: SYMBICORT 160-4.5 MCG INHALER INHALATION SCH (09:35)
[2022-06-11] MEDS ORDERED: FUROSEMIDE 20 MG TAB PO STA (09:39)
--- NOTE | 2022-06-11 12:20 | P.PN ---
Subjective Progress Note Date: 06/11/22 This very pleasant 62-year-old female patient with a known history of chronic obstructive pulmonary disease with an FEV1 value of 50% of predicted. She is not on home oxygen. She has a 1 week history of increasing shortness of breath, cough and congestion. She was seen in urgent care received antibiotics and steroids without much improvement. She did have some blood-tinged sputum. Some chest tightness. She presented here to the emergency room yesterday for the same. Chest x-ray revealed chronic emphysematous changes with right middle lobe opacity suspect lobar atelectasis. White count 7.3. Hemoglobin 14.0. Platelets 247. Sodium 141. Potassium 4.0. Bicarb any 6. BUN 18. Creatinine 0.60. Glucose 188. AST 27. ALT 33. ProBNP 126. Troponin negative 1. RSV screen negative. Influenza screen negative. COVID-19 screen negative. She's been initiated on Symbicort, DuoNeb inhalations, prednisone taper. Antibiotics in the form of Augmentin and doxycycline. Heparin for DVT prophylaxis. She is currently sitting up at the bedside. Awake and alert in no acute distress. Maintaining O2 saturations in the 90s on 5 L high flow nasal cannula. Feeling a bit better today compared to yesterday. Not quite back to her baseline. She's been afebrile. Hemodynamically stable. Reevaluated today on 06/08/2022, patient had to be transferred yesterday to the ICU mostly because her oxygen requirement has gone up, and the patient was developing more and more shortness of breath. Her CT angiogram of the chest showed no evidence of pulmonary embolism, it did show evidence of COPD, but no major acute changes noted. Patient had to be placed on BiPAP last night. 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 She is on relatively good course regimen of bronchodilators also on a good course of steroids, seems to be been doing better today, and her O2 sat requirement is coming down again to 6 L nasal cannula with O2 saturation in the 90-95 WBC count is 13.3 hemoglobin 13.9. ABG yesterday showed a pO2 of 56 pCO2 38 pH of 7.43, basic metabolic profile is normal pro- consider level is normal The patient is seen today in the 2022 and follow-up on the regular medical floor. She is currently sitting up in bed. Awake and alert in no acute distress. Doing much better. No worsening shortness of breath, cough or congestion. She still is on 6 L high flow nasal cannula with O2 saturations in the 90s. She's afebrile. Hemodynamically stable. Chest x-ray is revealing no acute cardiopulmonary disease. Blood cultures revealed no growth. White count 16.6. Hemoglobin 13.6. Platelets 320. Sodium 142. Potassium 4.6. Bicarb 28. BUN 36. Creatinine 0.64. Glucose 132. She is continued on Symbicort, albuterol ipratropium bromide, IV Solu-Medrol. Heparin for DVT prophylaxis. Empiric antibiotic in the form of Vibramycin. ProCalcitonin was 0.07. The patient is seen today 06/11/2022 in follow-up on the regular medical floor. She is currently sitting up in a chair at the bedside. Awake and alert in no acute distress. Denies any worsening shortness of breath, cough or congestion. Feeling nearly back to her baseline. Blood cultures reveal no growth. White count 14.9. Hemoglobin 12.9. Platelets 242. Sodium 135. Potassium 5.3. Bicarb 27. BUN 28. Creatinine 0.54. Glucose 158. She is continued on Symbicort, DuoNeb inhalations, IV Solu-Medrol. Heparin for DVT prophylaxis. Antibiotics in the form of doxycycline. Objective - Vital Signs Vital signs: Vital Signs Temp 98.8 F 06/11/22 08:11 Pulse 92 06/11/22 09:51 Resp 19 06/11/22 08:11 BP 125/62 06/11/22 08:11 Pulse Ox 94 L 06/11/22 11:05 FiO2 60 06/08/22 08:02 Intake & Output 06/10/22 06/11/22 06/11/22 18:59 06:59 18:59 Intake Total 118 Balance 118 Intake: Oral 118 Other: Voiding Method Toilet - Exam GENERAL EXAM: Alert, very pleasant 60-year-old female, on 3 L high flow nasal cannula, comfortable in no apparent distress. HEAD: Normocephalic. EYES: Normal reaction of pupils, equal size. NOSE: Clear with pink turbinates. THROAT: No erythema or exudates. NECK: No masses, no JVD. CHEST: No chest wall deformity. LUNGS: Equal air entry with no crackles, wheeze, rhonchi or dullness. Diminished. CVS: S1 and S2 normal with no audible murmur, regular rhythm. ABDOMEN: No hepatosplenomegaly, normal bowel sounds, no guarding or rigidity. SPINE: No scoliosis or deformity SKIN: No rashes CENTRAL NERVOUS SYSTEM: No focal deficits, tone is normal in all 4 extremities. EXTREMITIES: There is no peripheral edema. No clubbing, no cyanosis. Peripheral pulses are intact. - Labs CBC & Chem 7: 06/11/22 05:32 06/11/22 05:32 Labs: Abnormal Lab Results - Last 24 Hours (Table) 06/11/22 06/11/22 Range/Units 05:32 05:32 WBC 14.9 H (3.8-10.6) k/uL RBC 3.67 L (3.80-5.40) m/uL MCV 106.6 H (80.0-100.0) fL MCH 35.2 H (25.0-35.0) pg RDW 16.1 H (11.5-15.5) % Macrocytosis Marked A Sodium 135 L (137-145) mmol/L Potassium 5.3 H (3.5-5.1) mmol/L BUN 28 H (7-17) mg/dL Glucose 158 H (74-99) mg/dL Microbiology - Last 24 Hours (Table) 06/06/22 17:00 Blood Culture - Preliminary Blood No Growth after 96 hours 06/06/22 16:45 Blood Culture - Preliminary Blood No Growth after 96 hours Assessment and Plan Assessment: Acute hypoxemic respiratory failure secondary to an acute exacerbation of chronic obstructive pulmonary disease. Failed outpatient treatment Procalcitonin 0.07. Bronchiolitis obliterans secondary to plldp-aezslh-ttlc disease History of chronic obstructive pulmonary disease with FEV1 value 50% of predicted. No home oxygen. Maintained on Symbicort and albuterol. Former smoker Hyperlipidemia History of gastroesophageal reflux disease Plan: The patient was seen and evaluated Medications and labs reviewed Cleared for discharge from the pulmonary standpoint Continue a prednisone taper Will require home oxygen Continue her home Symbicort and albuterol Follow-up in our office in 1 week I have personally seen and examined the patient, performed the documentation and the assessment and plan as written. Number of minutes spent on the visit: 10.
--- NOTE | 2022-06-11 13:18 | CA ---
Transthoracic Echo Report Name: Lyn Chacon Age: 62 Gender: F : 1960 Exam Date: 06/10/2022 08:21 Exam Location: [facility] Ht (in): 61 Wt (lb): 102 Ordering Physician: Luis Alberto Morgan Attending/Referring Phys: Clinical Esthetician Ash Marion, RENE Procedure CPT: Indications: increasing O2 needs, r/o R to L shunting Cardiac Hx: COPD. Lung cc. Technical Quality: Fair Contrast 1: Agitated Saline Total Dose (mL): 1 Contrast 2: Total Dose (mL): MEASUREMENTS (Male / Female) Normal Values 2D ECHO LV Diastolic Diameter PLAX 2.8 cm 4.2 - 5.9 / 3.9 - 5.3 cm LV Systolic Diameter PLAX 2.0 cm LV Fractional Shortening PLAX 28.0 % IVS Diastolic Thickness 1.7 cm 0.6 - 1.0 / 0.6 - 0.9 cm IVS Systolic Thickness 1.7 cm LVPW Diastolic Thickness 1.5 cm 0.6 - 1.0 / 0.6 - 0.9 cm LVPW Systolic Thickness 1.6 cm LV Relative Wall Thickness 1.1 RV Internal Dim ED PLAX 3.6 cm LVOT Diameter 2.0 cm LV Diastolic Volume MOD 4C 45.6 cm??? LV Systolic Volume MOD 4C 21.1 cm??? LV Ejection Fraction MOD 4C 53.7 % LV Stroke Volume MOD 4C 24.5 cm??? LV Diastolic Length 4C 5.7 cm LV Systolic Length 4C 5.0 cm Ascending Aorta Diameter 3.4 cm M-MODE Aortic Root Diameter MM 3.2 cm LA Systolic Diameter MM 2.8 cm LA Ao Ratio MM 0.9 AV Cusp Separation MM 1.8 cm DOPPLER AV Peak Velocity 97.3 cm/s AV Peak Gradient 3.8 mmHg AI Peak Velocity 351.3 cm/s AI Peak Gradient 49.4 mmHg AI Deceleration Mcdonough 122.3 cm/s??? AI Pressure Half Time 833.2 ms MV Deceleration Mcdonough 297.9 cm/s??? MR Peak Velocity 209.5 cm/s MR Peak Gradient 17.6 mmHg Mitral E Point Velocity 54.4 cm/s Mitral A Point Velocity 64.6 cm/s Mitral E to A Ratio 0.8 MV Deceleration Time 182.7 ms MV E' Velocity 3.7 cm/s Mitral E to MV E' Ratio 14.7 TR Peak Velocity 223.3 cm/s TR Peak Gradient 19.9 mmHg Right Ventricular Systolic Press 27.9 mmHg PV Peak Velocity 84.4 cm/s PV Peak Gradient 2.8 mmHg FINDINGS Left Ventricle Left ventricular ejection fraction is estimated at 55-60 %. Mild concentric left ventricular hypertrophy. Grade 1 diastolic dysfunction. Normal systolic function. Right Ventricle Normal right ventricular size and function. RVSP- 28 mm Hg. Right Atrium Normal right atrial size. Left Atrium Normal left atrial size. Mitral Valve Structurally normal mitral valve. Mild mitral regurgitation. Aortic Valve Trileaflet aortic valve. Nyqr-rs-sflthyup aortic regurgitation. Tricuspid Valve Mild tricuspid regurgitation. Pulmonic Valve Trace pulmonic regurgitation. Pericardium Normal pericardium. No pericardial effusion. Aorta Normal size aortic root and proximal ascending aorta. CONCLUSIONS Left radical hypertrophy with preserved systolic function Previewed by: Dr. Cm Rodriguez MD (Electronically Signed) Final Date: 11 June 2022 13:17
--- NOTE | 2022-06-11 14:16 | P.DS ---
Providers Date of admission: 06/06/22 18:46 Expected date of discharge: 06/11/22 Attending physician: Naila Silverio MD Consults: 06/06/22 18:47 Consult Physician Routine Consulting Provider: Corry Ramirez Consult Reason/Comments: Your patient Do you want consulting provider notified?: Yes Primary care physician: Reji Berumen Hospital Course: Discharge Diagnosis: Acute on chronic hypoxic respiratory failure-e acute exacerbation of COPD versus reactivation of previous rtama-lqstyk-urkk disease versus opportunistic infection given hypogammaglobulinemia Hypogammaglobulinemia- on IVIG q 3 months Hypertension Dyslipidemia Hyperglycemia- A1C 5.7 History of CLL status post bone marrow transplant with eeauh-wdaxuk-cvuv disease-cutaneous and lung Hospital Course: Patient is a 62-year-old female with COPD, prior CLL status post bone marrow transplant complicated by oujcl-nztjwv-trkm disease of the lung, thoracic compression fractures, hypertension, dyslipidemia, GERD, and multiple other comorbid conditions who initially presented to the emergency department with complaints of upper respiratory symptoms. She had been treated with prednisone and amoxicillin through urgent care. Arrival to the ER here she was hypoxic at 86% on room air. Laboratory analysis was remarkable for a PTT of 20.9, glucose 188, lactic acid 2.2. Influenza A/B/RSV/COVID-19 testing was negative. Initial chest x-ray showed chronic emphysematous changes within the right middle lobe with possible lobar atelectasis consider obstructive mucous plugging. She was subsequently diagnosed with acute exacerbation of COPD complicated by acute hypoxic respiratory failure. She was admitted and started on prednisone and doxycycline. Pulmonary was consulted. They agreed with current plan of care and recommended checking a pro-calcitonin which came back negative at 0.07. The patient's O2 requirements increased despite aggressive treatment with steroids and bronchodilators. She was subsequently transferred to the ICU and started on BiPAP. She underwent a CTA of the chest which is negative for pulmonary embolism but demonstrated mild emphysematous changes with mild to moderate parenchymal scarring or atelectasis in the lower lungs. She was able to be weaned to 7 liters nasal cannula by 06/08/22 and her oxygen was slowly weaned. She continued to improve. Her Echo showed a preserved ejection fraction and mild LVH. She was determind stable for discharge. Follow-up: Dr. Berumen in one week Dr. Ramirez in one week Patient will require home O2 at 4 L nasal cannula 23/09 She will complete a prednisone taper She'll complete 3 additional days of doxycycline for a prolonged course secondary to her hypogammaglobulinemia Beta D Glucan was pending at the time of discharge. Patient seen and examined at bedside. No chest pain, shortness breath, nausea, vomiting. Breathing is stable. Feeling well. Anxious to go home. She has been sleeping poorly. She states her eye redness is chronic from her tuyrh-fjqaju-krbv disease. Vital signs reviewed and stable. General: nontoxic, no distress, appears at stated age Derm: warm, dry Head: atraumatic, normocephalic, symmetric Eyes: EOMI, no lid lag, anicteric sclera Mouth: no lip lesion, mucus membranes moist Cardiovascular: S1S2 reg, no murmur, positive posterior tibial pulse bilateral, Lungs: CTA bilateral, no rhonchi, no rales , no accessory muscle use Abdominal: soft, nontender to palpation, no guarding, no appreciable organomegaly Ext: no gross muscle atrophy, no edema, no contractures Neuro: CN II-XI grossly intact, no focal neuro deficits Psych: Alert, oriented, appropriate affect A total of 35 minutes of time were spent preparing this complex discharge summary. Patient was discharged on 06/11/22. This dictation was prepared using [employer] voice recognition software. Though every attempt is made to correct errors during during dictation some may still exist. Patient Condition at Discharge: Good Plan - Discharge Summary Discharge Rx Participant: No New Discharge Prescriptions: New Doxycycline [Vibramycin] 100 mg PO BID #7 cap predniSONE [Deltasone] 0 mg PO DIRECTED #18 tab Continue Budesonide/Formoterol Fumarate [Symbicort 160-4.5 Mcg Inhaler] 2 puff INHALATION RT-BID Zolpidem [Ambien] 2.5 - 5 mg PO HS PRN PRN Reason: Insomnia Multivitamins, Thera [Multivitamin (formulary)] 1 tab PO DAILY Fish Oil/Dha/Epa [Fish Oil 1,200 mg Fish Oil] 1 cap PO DAILY Albuterol Sulfate [Ventolin HFA] 2 puff INHALATION RT-QID PRN PRN Reason: Shortness Of Breath Calcitonin Nasal [Fortical (Miacalcin)] 1 spray NASAL DAILY Calcium Carbonate [Calcium] 600 mg PO DAILY Acyclovir 400 mg PO BID Sulfamethox-Tmp 400-80Mg [Bactrim SS 400-80 mg] 1 tab PO DAILY Rosuvastatin Calcium [Crestor] 40 mg PO HS Folic Acid 0.4 mg PO DAILY Cetirizine HCl [Zyrtec] 10 mg PO DAILY Magnesium 250 mg PO DAILY Cholecalciferol [Vitamin D3 (25 Mcg = 1000 Iu)] 50 mcg PO DAILY cycloSPORINE 0.05% OPHTH SOLN [Restasis] 1 applicator BOTH EYES Q12H Alendronate Sodium 70 mg PO FR Ibuprofen [Motrin] 800 mg PO Q8H PRN PRN Reason: Pain Or Fever > 100.5 Esomeprazole Magnesium [NexIUM 24Hr] 20 mg PO DAILY Vitamin E (Dl,Tocopheryl Acet) [Vitamin E (400 Iu = 180 mg)] 400 unit PO BID Albuterol Nebulized [Ventolin Nebulized] 2.5 mg INHALATION RT-Q6H PRN PRN Reason: Shortness Of Breath Discontinued Amoxic-Pot Clav 875-125Mg [Augmentin 875-125] 1 tab PO BID predniSONE See Taper PO DIRECTED Discharge Medication List Albuterol Sulfate [Ventolin HFA] 2 puff INHALATION RT-QID PRN 07/12/13 [History] Budesonide/Formoterol Fumarate [Symbicort 160-4.5 Mcg Inhaler] 2 puff INHALATION RT-BID 07/12/13 [History] Fish Oil/Dha/Epa [Fish Oil 1,200 mg Fish Oil] 1 cap PO DAILY 07/12/13 [History] Multivitamins, Thera [Multivitamin (formulary)] 1 tab PO DAILY 07/12/13 [History] Zolpidem [Ambien] 2.5 - 5 mg PO HS PRN 07/12/13 [History] Calcitonin Nasal [Fortical (Miacalcin)] 1 spray NASAL DAILY 10/06/17 [History] Calcium Carbonate [Calcium] 600 mg PO DAILY 10/06/17 [History] Acyclovir 400 mg PO BID 04/11/20 [History] Sulfamethox-Tmp 400-80Mg [Bactrim SS 400-80 mg] 1 tab PO DAILY 07/13/21 [History] Albuterol Nebulized [Ventolin Nebulized] 2.5 mg INHALATION RT-Q6H PRN 06/06/22 [History] Alendronate Sodium 70 mg PO FR 06/06/22 [History] Cetirizine HCl [Zyrtec] 10 mg PO DAILY 06/06/22 [History] Cholecalciferol [Vitamin D3 (25 Mcg = 1000 Iu)] 50 mcg PO DAILY 06/06/22 [History] Esomeprazole Magnesium [NexIUM 24Hr] 20 mg PO DAILY 06/06/22 [History] Folic Acid 0.4 mg PO DAILY 06/06/22 [History] Ibuprofen [Motrin] 800 mg PO Q8H PRN 06/06/22 [History] Magnesium 250 mg PO DAILY 06/06/22 [History] Rosuvastatin Calcium [Crestor] 40 mg PO HS 06/06/22 [History] Vitamin E (Dl,Tocopheryl Acet) [Vitamin E (400 Iu = 180 mg)] 400 unit PO BID 06/06/22 [History] cycloSPORINE 0.05% OPHTH SOLN [Restasis] 1 applicator BOTH EYES Q12H 06/06/22 [History] Doxycycline [Vibramycin] 100 mg PO BID #7 cap 06/11/22 [Rx] predniSONE [Deltasone] 0 mg PO DIRECTED #18 tab 06/11/22 [Rx] Follow up Appointment(s)/Referral(s): [facility],Equipment [NON-STAFF] - As Needed (Please call [facility] to arrange delivery of the oxygen concentrator. ) Reji Berumen DO [Primary Care Provider] - 1-2 days Corry Ramirez MD [STAFF PHYSICIAN] - 1 Week Ambulatory/Diagnostic Orders: Basic Metabolic Panel [LAB.AMB] Time Frame: 3 Days, Location: None Selected Complete Blood Count w/diff [LAB.AMB] Location: None Selected Activity/Diet/Wound Care/Special Instructions: Activity: As tolerated Diet: Regular Special Instructions: Patient requires home oxygen to manage her COPD at home. Please get repeat blood work in 3 days to check your white blood cell count and your potassium. If your oxygen stays greater than 92-94 for 24 hours you can down titrate your oxygen to 3L Discharge Disposition: HOME SELF-CARE
[2022-06-11 15:11] VITALS: BP 129/69
[2022-06-11 16:12] VITALS: PULSE 96
== END 2022-06-11 16:19 | disposition home or self-care (01) | DRG 189 ==
LOC: EC 15:37 → 4SSUR 18:46 → 2SICU 06-07 20:16 → 4SSUR 06-09 00:14
PROVIDERS: ADMIT Internal Medicine; ATTEND Internal Medicine
PROC: 5A09357 Assistance with Respiratory Ventilation, Less than 24 Consecutive Hours, Continuous Positive Airway Pressure (ICD-10-PCS; principal; 2022-06-07)
DX: J96.21 Acute and chronic respiratory failure with hypoxia (principal); J44.1 Chronic obstructive pulmonary disease with (acute) exacerbation; T86.09 Other complications of bone marrow transplant; D89.811 Chronic graft-versus-host disease; D80.1 Nonfamilial hypogammaglobulinemia; R04.2 Hemoptysis; C91.10 Chronic lymphocytic leukemia of B-cell type not having achieved remission; K21.9 Gastro-esophageal reflux disease without esophagitis; E78.5 Hyperlipidemia, unspecified; Z20.822 Contact with and (suspected) exposure to COVID-19; I10 Essential (primary) hypertension; M81.0 Age-related osteoporosis without current pathological fracture; M48.54XS Collapsed vertebra, not elsewhere classified, thoracic region, sequela of fracture; R73.9 Hyperglycemia, unspecified; Z79.51 Long term (current) use of inhaled steroids; Z79.83 Long term (current) use of bisphosphonates; Z79.899 Other long term (current) drug therapy; Z87.891 Personal history of nicotine dependence; Y83.0 Surgical operation with transplant of whole organ as the cause of abnormal reaction of the patient, or of later complication, without mention of misadventure at the time of the procedure; Z88.1 Allergy status to other antibiotic agents
CPT/HCPCS: 36415; 36600; 71045; 71046; 71275; 80048; 80053; 82805; 83036; 83605; 83735; 83880; 84100; 84145; 84484; 85025; 85027; 85610; 85730; 87040; 87449; 87636; 93005; 93306; 94640; 94660; 94760; 99285

== ENCOUNTER → 2022-06-14 | Outpatient (CLI) | payer MEDICARE ==
[2022-06-14 20:16] LABS: HCT 43.1 % (37.2-46.3); HGB 14.1 g/dL (12.0-15.0); MCH 35.2 pg (27.0-32.0); MCHC 32.7 g/dL (32.0-37.0); MCV 107.5 fL (80.0-97.0); Mean Platelet Volume 11.3 fL (9.5-12.2); NRBC Per 100 WBC 0.9 /100 WBCS (0.0-0.0); Platelet Count 289 X 10*3/uL (140-440); RBC 4.01 X 10*6/uL (4.10-5.20); RDW 15.8 % (11.5-14.5); WBC 18.65 X 10*3/uL (4.50-10.00)
[2022-06-14 21:09] LABS: Basophils # (A) 0.03 X 10*3/uL (0.00-0.10); Basophils % (A) 0.2 %; Eosinophils # (A) 0 X 10*3/uL (0.04-0.35); Eosinophils % (A) 0 %; Immature Grans, Automated 0.9 %; Lymphocytes # (A) 0.49 X 10*3/uL (0.90-5.00); Lymphocytes % (A) 2.6 %; Monocytes # (A) 0.41 X 10*3/uL (0.20-1.00); Monocytes % (A) 2.2 %; Neutrophils # (A) 17.55 X 10*3/uL (1.80-7.70); Neutrophils % (A) 94.1 %; RBC Morphology NORMAL
[2022-06-14 21:13] LABS: African American GFR (CKD) 88.8 (60.0-200.0); Anion Gap 14.5 mmol/L (10.00-18.00); BUN/Creat Ratio 28.26 Ratio (12.00-20.00); Blood Urea Nitrogen 23.2 mg/dL (9.0-27.0); Calcium 10.3 mg/dL (8.7-10.3); Carbon Dioxide 24.8 mmol/L (20.0-27.5); Non-African American GFR(CKD) 76.6 (60.0-200.0)
== END | disposition home or self-care (01) ==
LOC: LABWHC1 11:44
PROVIDERS: ATTEND Internal Medicine
DX: E87.5 Hyperkalemia (principal)
CPT/HCPCS: 36415; 80048; 85025

== ENCOUNTER → 2022-07-30 | Outpatient (CLI) | payer MEDICARE ==
--- NOTE | 2022-07-30 14:55 | BD ---
EXAMINATION TYPE: Axial Bone Density DATE OF EXAM: 07/30/2022 CLINICAL HISTORY: 62 years old Female. ICD-10 CODE: M85.88 OTH DISRD OF BONE DENSITY AND STRUCTURE, OTHER SITE Height: 61 Weight: 107.1 FRAX RISK QUESTIONS: Alcohol (3 or more units per day): no Family History (Parent hip fracture): yes Glucocorticoids (More than 3mos): yes (Ex: prednisone, prednisolone, methylprednisolone, dexamethasone, and hydrocortisone). History of Fracture in Adulthood: no Secondary Osteoporosis: 1. Type 1 Diabetes: no 2. Hyperthyroidism: no 3. Menopause before 45: no 4. Malnutrition: no 5. Chronic liver disease: no Rheumatoid Arthritis: no Current Tobacco Use: no RISK FACTORS HISTORY OF: Surgery to Spine/Hip(right/left)/Wrist (right/left): no Family History of Osteoporosis: yes Active: yes Diet low in dairy products/other sources of calcium: no Postmenopausal woman: yes Lost more than 2 inches in height since high school: yes MEDICATIONS: Additional History: EXAM MEASUREMENTS: Bone mineral densitometry was performed using the [employer] System. Bone mineral density as measured about the Lumbar spine is: ----- L1-L4(G/cm2): 0.966 T Score Values are as follows: ----- L1: -1.3 ----- L2: -1.9 ----- L3: -2.1 ----- L4: -1.9 ----- L1-L4: -1.8 Z Score Values are as follows: ----- L1: 0.7 ----- L2: 0.0 ----- L3: -0.2 ----- L4: 0.0 ----- L1-L4: 0.1 Bone mineral density has: increased 2.3 % since study of: 11.29.2019 Bone mineral density about the R hip (g/cm2): 0.720 Bone mineral density about the L hip (g/cm2): 0.708 T Score values are as follows: -----R Neck: -1.9 -----L Neck: -2.4 -----R Total: -2.3 -----L Total: -2.4 Z Score values are as follows: -----R Neck: -0.3 -----L Neck: -0.7 -----R Total: -0.9 -----L Total: -1.0 Bone mineral density has: decreased -1.5 % since study of: 11.29.2019 FRAX%s: The graph provided illustrates a 29.7% chance for a major osteoporotic fx and a 4.0% chance f or the hips probability for fx in 10 years time. IMPRESSION: Osteopenia (T Score between -2.5 and -1). There is slightly increased risk of fracture and the patient may be considered for treatment. Re-Screen 2-5 years. NOTE: T-SCORE=SD OF THE YOUNG ADULT MEAN.
--- NOTE | 2022-07-31 19:26 | MM ---
Reason for Exam: Screening (asymptomatic). Last mammogram was performed 1 year(s) and 5 month(s) ago. Patient History: Menarche at age 17. First Full-Term at age 26. Postmenopausal. Other cancer, age 45. Risk Values: Vicyk 5 year model risk: 1.5%. NCI Lifetime model risk: 7.0%. Prior Study Comparison: 06/02/2017 Bilateral Screening Mammogram, [facility]. 11/29/2019 Bilateral Screening Mammogram, [facility]. 01/31/2021 Bilateral Screening Mammogram, [facility]. Tissue Density: The breast tissue is heterogeneously dense. This may lower the sensitivity of mammography. Findings: Analyzed By CAD. Unchanged areas of asymmetric density on both sides. Benign well cystic calcifications on the left. There is no suspicious group of microcalcifications or new suspicious mass in either breast. Overall Assessment: Benign, BI-RAD 2 Management: Screening Mammogram of both breasts in 1 year. . Patient should continue monthly self-breast exams. A clinical breast exam by your physician is recommended on an annual basis. This exam should not preclude additional follow-up of suspicious palpable abnormalities. Note on Vicky scores and lifetime risk: 1. A Vicky score greater than 3% is considered moderate risk. If this is the case, consider specialist referral to assess eligibility for a risk reducing agent. 2. If overall lifetime risk for the development of breast cancer is 20% or higher, the patient may qualify for future screening with alternating mammogram and breast MRI. Electronically signed and approved by: Mehran Franco M.D. Radiologist
== END | disposition home or self-care (01) ==
LOC: RADMAMWWP 13:27
PROVIDERS: ATTEND Obstetrics & Gynecology
DX: Z12.31 Encounter for screening mammogram for malignant neoplasm of breast (principal); M85.89 Other specified disorders of bone density and structure, multiple sites; Z78.0 Asymptomatic menopausal state
CPT/HCPCS: 77067; 77080

== ENCOUNTER → 2023-09-24 | Outpatient (CLI) | payer MEDICARE ==
--- NOTE | 2023-09-29 09:31 | MM ---
Reason for Exam: Screening (asymptomatic). Last mammogram was performed 1 year(s) and 2 month(s) ago. Patient History: Menarche at age 17. First Full-Term at age 26. Postmenopausal. Other cancer, age 45. Risk Values: Vicky 5 year model risk: 1.6%. NCI Lifetime model risk: 6.8%. Prior Study Comparison: 11/29/2019 Bilateral Screening Mammogram, [facility]. 01/31/2021 Bilateral Screening Mammogram, [facility]. 07/30/2022 Bilateral MG screening mammo w CAD, [facility]. Tissue Density: There are scattered areas of fibroglandular density. Findings: Analyzed By CAD. There is no suspicious group of microcalcifications or new suspicious mass in either breast. Overall Assessment: Benign, BI-RAD 2 Management: Screening Mammogram of both breasts in 1 year. . Patient should continue monthly self-breast exams. A clinical breast exam by your physician is recommended on an annual basis. This exam should not preclude additional follow-up of suspicious palpable abnormalities. Note on Vicky scores and lifetime risk: 1. A Vicky score greater than 3% is considered moderate risk. If this is the case, consider specialist referral to assess eligibility for a risk reducing agent. 2. If overall lifetime risk for the development of breast cancer is 20% or higher, the patient may qualify for future screening with alternating mammogram and breast MRI. Electronically signed and approved by: Kory Dickens M.D. Radiologis
== END | disposition home or self-care (01) ==
LOC: RADMAMWWP 14:01
PROVIDERS: ATTEND Internal Medicine Hematology & Oncology
DX: Z12.31 Encounter for screening mammogram for malignant neoplasm of breast (principal); R92.323 Mammographic fibroglandular density, bilateral breasts; Z78.0 Asymptomatic menopausal state
CPT/HCPCS: 77063; 77067

== ENCOUNTER → 2024-02-17 | Outpatient (CLI) | payer MEDICARE ==
--- NOTE | 2024-02-17 11:50 | XR ---
EXAMINATION TYPE: XR sternum DATE OF EXAM: 02/17/2024 11:14 AM COMPARISON: 06/09/2022 CLINICAL INDICATION: Female, 63 years old with history of R0789 OTHER CHEST PAIN; [facility] TECHNIQUE: XR sternum; Frontal and oblique views of the internal FINDINGS: The sternum appears intact. The ribs have a normal appearance. No evidence of fracture. Ov erall, the lungs are clear. The cardiac silhouette is normal in size. The remaining osseous structu res are intact. IMPRESSION: The sternum appears intact. [facility], , 02/17/2024 11:48 AM
== END | disposition home or self-care (01) ==
LOC: RADXRYALE 11:03
PROVIDERS: ATTEND Physician Assistant Medical
DX: R07.89 Other chest pain (principal)
CPT/HCPCS: 71120

== ENCOUNTER → 2024-05-24 | Outpatient (CLI) | payer MEDICARE ==
--- NOTE | 2024-05-24 15:23 | XR ---
EXAMINATION TYPE: XR chest 2V DATE OF EXAM: 05/24/2024 3:13 PM COMPARISON: Chest radiographs from 02/17/2024. CLINICAL INDICATION: Female, 64 years old with history of R0602 SOB; [facility] TECHNIQUE: XR chest 2V Frontal and lateral views of the chest. FINDINGS: Lungs/Pleura: There is flattening of the diaphragm with increased lucency of the lungs. No evidence o f pneumothorax, pleural effusion or focal consolidation. Pulmonary vascularity: Unremarkable. Heart/mediastinum: Cardiomediastinal silhouette is unremarkable. Musculoskeletal: No acute osseous pathology. IMPRESSION: 1. No acute cardiopulmonary disease process. 2. COPD changes. [facility], , 05/24/2024 3:21 PM
== END | disposition home or self-care (01) ==
LOC: RADXRYALE 14:49
PROVIDERS: ATTEND Physician Assistant Medical
DX: J44.9 Chronic obstructive pulmonary disease, unspecified (principal)
CPT/HCPCS: 71046

== ENCOUNTER → 2024-09-28 | Outpatient (CLI) | payer MEDICARE ==
--- NOTE | 2024-09-28 17:43 | MM ---
Reason for Exam: Screening (asymptomatic). Last screening mammogram was performed 12 month(s) ago. Patient History: Menarche at age 17. First Full-Term at age 26. Postmenopausal. Other cancer, age 45. Patient used Hormonal Contraceptives for 2 years. Risk Values: Vicky 5 year model risk: 1.6%. NCI Lifetime model risk: 6.6%. Prior Study Comparison: 01/31/2021 Bilateral Screening Mammogram, [facility]. 07/30/2022 Bilateral MG screening mammo w CAD, [facility]. 09/24/2023 Bilateral MG 3D screening mammo w/cad, [facility]. Tissue Density: There are scattered areas of fibroglandular density. Findings: Analyzed By CAD. Unchanged bilateral areas of asymmetric density. There is no suspicious group of microcalcifications or new suspicious mass in either breast. Overall Assessment: Benign, BI-RAD 2 Management: Screening Mammogram of both breasts in 1 year. Patient should continue monthly self-breast exams. A clinical breast exam by your physician is recommended on an annual basis. This exam should not preclude additional follow-up of suspicious palpable abnormalities. Note on Vicky scores and lifetime risk: 1. A Vicky score greater than 3% is considered moderate risk. If this is the case, consider specialist referral to assess eligibility for a risk reducing agent. 2. If overall lifetime risk for the development of breast cancer is 20% or higher, the patient may qualify for future screening with alternating mammogram and breast MRI. [facility], , 09/28/2024 5:39 PM. Electronically signed and approved by: Mehran Franco M.D. Radiologist
== END | disposition home or self-care (01) ==
LOC: RADMAMWWP 11:14
PROVIDERS: ATTEND Internal Medicine Hematology & Oncology
DX: Z12.31 Encounter for screening mammogram for malignant neoplasm of breast (principal); R92.323 Mammographic fibroglandular density, bilateral breasts; Z78.0 Asymptomatic menopausal state; Z92.0 Personal history of contraception
CPT/HCPCS: 77063; 77067